=== PATIENT | male | born 1945 | race Caucasian/White ===

== ENCOUNTER → 2016-12-01 | Outpatient (REF) | payer BC ==
[~2016-12-01] MED LIST: ANDR1.624 TD; ASPI325T PO; ATOR40TA PO; BUPR300T34 PO; DRIS50002 PO; FENO134C PO; GABA-282 PO; LANS30CA PO; LEVO50TA45 PO; LOMO2.5T PO; VITA-5 PO; XANA1TAB2 PO
[2016-12-01 12:33] LABS: VITAMIN B12 LEVEL 822 PG/ML (247-911)
[2016-12-01 12:40] LABS: ALBUMIN 3.5 GM/DL (3.2-5.2); ALKALINE PHOSPHATASE 32 U/L (45-117); ALT/SGPT 17 U/L (12-78); ANION GAP 7 MEQ/L (8-16); AST/SGOT 13 U/L (15-37); BILIRUBIN,TOTAL 0.4 MG/DL (0.2-1.0); BLOOD UREA NITROGEN 11 MG/DL (7-18); CALCIUM LEVEL 8.6 MG/DL (8.8-10.2); CARBON DIOXIDE LEVEL 30 MEQ/L (21-32); CHLORIDE LEVEL 106 MEQ/L (98-107); CHOLESTEROL LEVEL 158 MG/DL (<200); CREATININE FOR GFR 1.23 MG/DL (0.70-1.30); FREE T4 0.93 NG/DL (0.76-1.46); GLOMERULAR FILTRATION RATE > 60.0 (>42); GLUCOSE, FASTING 96 MG/DL (83-110); SODIUM LEVEL 143 MEQ/L (136-145); TRIGLYCERIDES LEVEL 85 MG/DL (<150)
== END ==
LOC: M LABDRAW1 11:26
PROVIDERS: ATTEND Emergency Medicine
DX: E78.2 Mixed hyperlipidemia (principal); E55.9 Vitamin D deficiency, unspecified; D51.9 Vitamin B12 deficiency anemia, unspecified; E03.9 Hypothyroidism, unspecified

== ENCOUNTER → 2017-01-01 | Outpatient (CLI) | payer BC ==
[~2017-01-01] MED LIST changes: +ISOVUE-370 76% 100ML VIAL (Q9967) As Ordered ONE
--- NOTE | 2017-01-01 17:14 | REP ---
Clinical: Follow-up pulmonary nodule. Technique: Axial contrast enhanced images from the thoracic inlet to the upper abdomen oozing 100 ml Isovue 370 intravenous contrast material with coronal and sagittal re-formations. Comparison: 06/27/2016. Findings: The 6 mm noncalcified nodule inseparable from the right major fissure (image 52) remains stable. Smaller noncalcified nodules inseparable from the left major fissure are known to be chronic and stable compared to 2007. Trace bibasilar chronic changes and minimal lingular scarring remains stable to 2016 and similar to 2007. No new acute consolidation, significant nodule or mass lesion appreciated. Tracheobronchial tree is patent and normal. No adenopathy. Mediastinum demonstrates atherosclerotic changes to the thoracic aorta and coronary arteries without aortic aneurysm, cardiomegaly or pericardial effusion. Evidence for prior sternotomy and CABG. Limited upper abdomen demonstrates normal bilateral adrenal glands. Impression: Stable appearance to the 6 mm nodule inseparable from the right major fissure. Remainder examination demonstrates essentially stable compared to 2007. Consider 9 to 12-month follow-up examination to insure stability and chronicity. Signed by Tomás Edwards MD 01/01/2017 05:06 P
== END ==
LOC: M RAD 16:19
PROVIDERS: ATTEND Emergency Medicine
DX: R91.1 Solitary pulmonary nodule (principal)
CPT/HCPCS: 71260; Q9967

== ENCOUNTER → 2017-06-09 | Outpatient (CLI) | payer BC ==
[~2017-06-09] MED LIST changes: -ATOR40TA PO; +ATOR40TA75 PO; -ISOVUE-370 76% 100ML VIAL (Q9967) As Ordered ONE
[2017-06-09 10:18] LABS: ALBUMIN 3.8 GM/DL (3.2-5.2); ALBUMIN/GLOBULIN RATIO 1.36 (1.00-1.93); ALKALINE PHOSPHATASE 51 U/L (45-117); ALT/SGPT 21 U/L (12-78); ANION GAP 8 MEQ/L (8-16); AST/SGOT 16 U/L (7-37); BILIRUBIN,TOTAL 0.4 MG/DL (0.2-1.0); BLOOD UREA NITROGEN 18 MG/DL (7-18); CARBON DIOXIDE LEVEL 28 MEQ/L (21-32); CHLORIDE LEVEL 108 MEQ/L (98-107); CHOLESTEROL LEVEL 159 MG/DL (<200); CREATININE FOR GFR 1.15 MG/DL (0.70-1.30); FREE T4 1.09 NG/DL (0.76-1.46); GLOMERULAR FILTRATION RATE > 60.0 (>42); GLUCOSE, FASTING 96 MG/DL (83-110); POTASSIUM SERUM 4.3 MEQ/L (3.5-5.1); SODIUM LEVEL 144 MEQ/L (136-145); TOTAL PROTEIN 6.6 GM/DL (6.4-8.2); TRIGLYCERIDES LEVEL 294 MG/DL (<150)
== END ==
LOC: M LAB 08:54
PROVIDERS: ATTEND Emergency Medicine
DX: Z00.00 Encounter for general adult medical examination without abnormal findings (principal); I10 Essential (primary) hypertension; E78.2 Mixed hyperlipidemia; E03.9 Hypothyroidism, unspecified; E55.9 Vitamin D deficiency, unspecified

== ENCOUNTER → 2017-12-12 | Outpatient (REF) | payer BC ==
[2017-12-12 12:18] LABS: TOTAL 25(OH) VITAMIN D 31.3 NG/ML (30.0-100.0); VITAMIN B12 LEVEL 627 PG/ML (247-911)
[2017-12-12 12:36] LABS: ALBUMIN 3.7 GM/DL (3.2-5.2); ALBUMIN/GLOBULIN RATIO 1.28 (1.00-1.93); ALKALINE PHOSPHATASE 47 U/L (45-117); ALT/SGPT 17 U/L (12-78); ANION GAP 5 MEQ/L (8-16); AST/SGOT 17 U/L (7-37); BILIRUBIN,TOTAL 0.4 MG/DL (0.2-1.0); BLOOD UREA NITROGEN 17 MG/DL (7-18); CALCIUM LEVEL 8.6 MG/DL (8.8-10.2); CARBON DIOXIDE LEVEL 28 MEQ/L (21-32); CHLORIDE LEVEL 109 MEQ/L (98-107); CHOLESTEROL LEVEL 157 MG/DL (<200); CHOLESTEROL RISK RATIO 3.204 (<5); CREATININE FOR GFR 1.13 MG/DL (0.70-1.30); FREE T4 0.95 NG/DL (0.76-1.46); GLOMERULAR FILTRATION RATE > 60.0 (>42); GLUCOSE, FASTING 97 MG/DL (70-100); HDL CHOLESTEROL 49 MG/DL (>40); LDL CHOLESTEROL 83.4 MG/DL (<100); NON-HDL-C 108 MG/DL; POTASSIUM SERUM 4.5 MEQ/L (3.5-5.1); SODIUM LEVEL 142 MEQ/L (136-145); TOTAL PROTEIN 6.6 GM/DL (6.4-8.2); TRIGLYCERIDES LEVEL 123 MG/DL (<150)
== END ==
LOC: M LABDRAW1 10:14
DX: E78.2 Mixed hyperlipidemia (principal); E55.9 Vitamin D deficiency, unspecified; D51.9 Vitamin B12 deficiency anemia, unspecified; E03.9 Hypothyroidism, unspecified
CPT/HCPCS: 84443

== ENCOUNTER → 2017-12-31 | Outpatient (CLI) | payer BC ==
[~2017-12-31] MED LIST changes: -ANDR1.624 TD; -ASPI325T PO; -ATOR40TA75 PO; -BUPR300T34 PO; -DRIS50002 PO; -FENO134C PO; -GABA-282 PO; +ISOVUE-370 76% 100ML VIAL (Q9967) As Ordered; -LANS30CA PO; -LEVO50TA45 PO; -LOMO2.5T PO; -VITA-5 PO; -XANA1TAB2 PO
== END ==
LOC: M RAD 10:09
DX: R91.8 Other nonspecific abnormal finding of lung field (principal)
CPT/HCPCS: Q9967

== ENCOUNTER → 2018-07-02 | Outpatient (REF) | payer BC ==
[2018-07-02 15:59] LABS: BASO # 0.1 10^3/uL (0.0-0.2); BASO % 0.6 % (0.0-1.0); EOS # 0.1 10^3/uL (0.0-0.50); EOS % 1.6 % (0.0-3.0); HEMATOCRIT 39.2 % (42.0-52.0); HEMOGLOBIN 13.3 g/dl (13.5-17.5); IMMATURE GRANULOCYTE % 0.5 % (0-3.0); LYMPH # 1.4 10^3/uL (1.5-4.5); LYMPH % 17.1 % (24.0-44.0); MEAN CORPUSCULAR HEMOGLOBIN 32.5 pg (27.0-33.0); MEAN CORPUSCULAR HGB CONC 33.9 g/dl (32.0-36.5); MEAN CORPUSCULAR VOLUME 95.8 fl (80.0-96.0); MONO # 0.7 10^3/uL (0.0-0.8); MONO % 8.6 % (0.0-5.0); NEUTROPHILS # 5.9 10^3/uL (1.8-7.7); NEUTROPHILS % 71.6 % (36.0-66.0); PLATELET COUNT, AUTOMATED 269 10^3/uL (150-450); RED BLOOD COUNT 4.09 10^6/uL (4.30-6.10); RED CELL DISTRIBUTION WIDTH 12.7 % (11.5-14.5); WHITE BLOOD COUNT 8.3 10^3/uL (4.0-10.0)
[2018-07-02 16:14] LABS: ALBUMIN 3.8 GM/DL (3.2-5.2); ALBUMIN/GLOBULIN RATIO 1.41 (1.00-1.93); ALKALINE PHOSPHATASE 48 U/L (45-117); ALT/SGPT 20 U/L (12-78); ANION GAP 7 MEQ/L (8-16); AST/SGOT 15 U/L (7-37); BILIRUBIN,TOTAL 0.8 MG/DL (0.2-1.0); BLOOD UREA NITROGEN 13 MG/DL (7-18); CALCIUM LEVEL 8.8 MG/DL (8.8-10.2); CARBON DIOXIDE LEVEL 29 MEQ/L (21-32); CHLORIDE LEVEL 107 MEQ/L (98-107); CREATININE FOR GFR 1.21 MG/DL (0.70-1.30); GLOMERULAR FILTRATION RATE > 60.0 (>42); GLUCOSE, FASTING 84 MG/DL (70-100); POTASSIUM SERUM 4.1 MEQ/L (3.5-5.1); RHEUMATOID FACTOR QUANT < 10.0 IU/ML (<15.0); SODIUM LEVEL 143 MEQ/L (136-145); TOTAL 25(OH) VITAMIN D 49.1 NG/ML (30.0-100.0); TOTAL PROTEIN 6.5 GM/DL (6.4-8.2)
[2018-07-02 16:41] LABS: ERYTHROCYTE SEDIMENTATION RATE 3 mm/hr (0-20)
[2018-07-05 14:10] LABS: ANTINUCLEAR ANTIBODIES DIRECT Negative (Negative)
== END ==
LOC: M LABDRAW1 15:41
DX: R51 Headache (principal)
CPT/HCPCS: 84443

== ENCOUNTER → 2018-12-03 | Outpatient (REF) | payer BC ==
[~2018-12-03] MED LIST changes: +ANDR1.624 TD; +ASPI-1 PO; +ATOR40TA75 PO; +BUPR300T34 PO; +DRIS50003 PO; +FENO134C PO; +GABA-843 PO; -ISOVUE-370 76% 100ML VIAL (Q9967) As Ordered; +LANS30CA PO; +LEVO50TA45 PO; +LOMO2.5T PO; +VITA-5 PO; +XANA1TAB2 PO
[2018-12-03 13:59] LABS: ALBUMIN 3.3 GM/DL (3.2-5.2); ALT/SGPT 17 U/L (12-78); BILIRUBIN,TOTAL 0.3 MG/DL (0.2-1.0); BLOOD UREA NITROGEN 17 MG/DL (7-18); CALCIUM LEVEL 8.5 MG/DL (8.8-10.2); CARBON DIOXIDE LEVEL 27 MEQ/L (21-32); CHLORIDE LEVEL 110 MEQ/L (98-107); CHOLESTEROL LEVEL 139 MG/DL (<200); CHOLESTEROL RISK RATIO 3.021 (<5); GLOMERULAR FILTRATION RATE > 60.0 (>42); GLUCOSE, FASTING 106 MG/DL (70-100); HDL CHOLESTEROL 46 MG/DL (>40); LDL CHOLESTEROL 76 MG/DL (<100); NON-HDL-C 93 MG/DL; POTASSIUM SERUM 3.8 MEQ/L (3.5-5.1); SODIUM LEVEL 143 MEQ/L (136-145); TOTAL PROTEIN 5.9 GM/DL (6.4-8.2); TRIGLYCERIDES LEVEL 85 MG/DL (<150)
== END ==
LOC: M LABDRAW1 11:55
PROVIDERS: ATTEND Physician Assistant
DX: I10 Essential (primary) hypertension (principal); E03.9 Hypothyroidism, unspecified

== ENCOUNTER → 2019-05-15 | Outpatient (REF) | payer BC | LOC: M LAB REF 16:55 | PROVIDERS: ATTEND Orthopaedic Surgery Hand Surgery | DX: M72.0 Palmar fascial fibromatosis [Dupuytren] (principal) ==

== ENCOUNTER → 2019-06-04 | Outpatient (REF) | payer BC ==
[2019-06-04 16:10] LABS: BASO % 0.5 % (0.0-1.0); EOS # 0.2 10^3/uL (0.0-0.5); HEMATOCRIT 36.9 % (42.0-52.0); HEMOGLOBIN 12.3 g/dl (13.5-17.5); LYMPH # 1.3 10^3/uL (1.5-5.0); LYMPH % 17.2 % (24.0-44.0); MEAN CORPUSCULAR HEMOGLOBIN 32.6 pg (27.0-33.0); MEAN CORPUSCULAR HGB CONC 33.3 g/dl (32.0-36.5); MEAN CORPUSCULAR VOLUME 97.9 fl (80.0-96.0); MONO # 0.5 10^3/uL (0.0-0.8); MONO % 6.9 % (0.0-5.0); NEUTROPHILS # 5.3 10^3/uL (1.5-8.5); NEUTROPHILS % 72.5 % (36.0-66.0); PLATELET COUNT, AUTOMATED 449 10^3/uL (150-450); RED BLOOD COUNT 3.77 10^6/uL (4.30-6.10); WHITE BLOOD COUNT 7.4 10^3/uL (4.0-10.0)
[2019-06-04 16:13] LABS: ALBUMIN 3.1 GM/DL (3.2-5.2); ALT/SGPT 16 U/L (12-78); BILIRUBIN,TOTAL 0.4 MG/DL (0.2-1.0); BLOOD UREA NITROGEN 12 MG/DL (7-18); CALCIUM LEVEL 8.7 MG/DL (8.8-10.2); CARBON DIOXIDE LEVEL 29 MEQ/L (21-32); CHLORIDE LEVEL 110 MEQ/L (98-107); CREATININE FOR GFR 1.14 MG/DL (0.70-1.30); FREE T4 1.05 NG/DL (0.76-1.46); GLOMERULAR FILTRATION RATE > 60.0 (>42); GLUCOSE, FASTING 91 MG/DL (70-100); POTASSIUM SERUM 4.6 MEQ/L (3.5-5.1); SODIUM LEVEL 142 MEQ/L (136-145); THYROID STIMULATING HORMONE 0.519 uIU/ML (0.358-3.740); TOTAL PROTEIN 6.3 GM/DL (6.4-8.2)
== END ==
LOC: M LABDRAW1 13:15
PROVIDERS: ATTEND Physician Assistant
DX: E03.9 Hypothyroidism, unspecified (principal); D51.9 Vitamin B12 deficiency anemia, unspecified; I10 Essential (primary) hypertension

== ENCOUNTER 2019-07-28 10:41 | Day surgery (SDC) | payer BC ==
[~2019-07-28] VITALS: Ht 177.8 cm; Wt 80.7 kg
[~2019-07-28 10:41] MED LIST changes: +LIDOCAINE 2% INJ 100 MG/5 ML SDV (FOR ANES.) As Ordered ONE; +MIDAZOLAM INJ 2 MG/2 ML VIAL (J2250) As Ordered ONE; +ceFAZolin SOD 2 GM in IV 1 EA IV ONE; +fentaNYL 100 MCG/2 ML INJECTION (J3010) As Ordered ONE
[2019-07-28] MEDS ORDERED: ONDANSETRON 4MG/2ML VIAL (J2405) As Ordered ONE (10:42)
[2019-07-28] MEDS ORDERED: PROPOFOL 200 MG/20 ML VIAL As Ordered ONE ×2 (10:42→12:43)
[2019-07-28] MEDS ORDERED: OMEG10002 PO (11:38)
[2019-07-28] MEDS ORDERED: BUPIVACAINE/EPIN 0.25% 30 ML VIAL As Ordered ONE (11:55)
[2019-07-28] MEDS ORDERED: LR 1,000 ML IV ONE (12:00)
[2019-07-28] MEDS ORDERED: KETAMINE HCL 200 MG/20 ML VIAL As Ordered ONE (12:34)
[2019-07-28] MEDS ORDERED: KETOROLAC 60 MG/2 ML VIAL (J1885) As Ordered ONE (12:53)
[2019-07-28] MEDS ORDERED: oxyCODONE 5MG TAB PO PRN ×2 (13:45)
[2019-07-28 14:30] VITALS: BP 136/60
--- NOTE | 2019-07-28 17:16 | ECGEPIP ---
[facility] Test Date: 2019-07-28 Pat Name: MYLES HOLGUIN Department: Room: - Gender: Male Hospital Orderly: L[facility]EN[facility] : 1945 Requested By: Antione Cruz Order Number: [id number] Reading MD: Yoni Rodarte Measurements Intervals [place] Rate: 74 P: 62 MT: 141 QRS: 9 QRSD: 99 T: 24 QT: 392 QTc: 437 Interpretive Statements SINUS RHYTHM POSSIBLE LEFT ATRIAL ENLARGEMENT Comparison tracing not on file Electronically Signed on 07-28-2019 17:15:49 EST by Yoni Rodarte
--- NOTE | 2019-07-29 16:32 | RO ---
DATE OF PROCEDURE: 07/28/2019 PREPROCEDURE DIAGNOSIS: Right femur full thickness skin loss over the volar proximal interphalangeal (PIP). POSTPROCEDURE DIAGNOSIS: Right femur full thickness skin loss over the volar proximal interphalangeal (PIP). Flexor tendon decussation. PROCEDURE: Right ring finger amputation at the proximal interphalangeal joint. SURGEON: Gerald Huntley MD LUMBER SALVAGER: None. ANESTHESIA: Moderate sedation with local anesthesia. PREOPERATIVE ANTIBIOTICS: 2 grams of Ancef. COMPLICATIONS: None. TOURNIQUET TIME: Approximately 20 minutes. INDICATIONS: This is a 74-year-old male who underwent a revision ring finger and small finger Dupuytren's approximately 2-3 months prior. As a result, suffered a full thickness skin loss and due to the skin loss and numerous procedures that need to be done in order to restore the skin along with flexor tendon reconstruction, the patient preferred to go with a ring finger amputation at the PIP, which is completely reasonable. We discussed the risks including but not limited to infection, damage to surrounding structures, incomplete relief. The patient expressed understanding and wished to proceed. DESCRIPTION OF PROCEDURE: The patient was brought back to the operating room (OR) in supine position, underwent moderate sedation at which point a time out was taken to confirm site, side, and surgery. Once all in agreement, we injected 10 mL of 0.25% Marcaine with epinephrine in a digital block form. We then prepped and draped the hand in the usual fashion. Repeat time-out confirmed side and site of surgery. One all in agreement, we made an incision just proximal to the volar skin necrosis down through the flexor tendon to bone and disarticulated through the PIP and elevated a dorsal skin graft left in continuity with the proximal finger. Once this was done, we isolated the extensor tendon and flexor tendons and excised them proximally. We then identified both the radial and ulnar digital nerves and excised them proximally as well. Once this was done, we irrigated thoroughly. We used a rongeur to debride the articular surface of the proximal phalanx and reshaped it into more of a distal phalanx shape. At which point, we irrigated the wound thoroughly and closed with #3-0 nylon. We then placed a dressing of Adaptic gauze, Stoney and Coban. Tourniquet was let down. The patient was awakened and taken to the post-anesthesia care unit (PACU) in stable condition. POSTOP PLAN: Given the open wound, we did place the patient on one week's worth of Keflex 250 mg four times a day for 7 days, also some pain medication. Patient will work on range of motion immediately after surgery and will see him in approximately 2 weeks for suture removal if he is ready. Patient expressed understanding and agrees with that ahead of time.
== END 2019-07-28 14:40 | disposition home or self-care (01) ==
LOC: M SDC 10:41
PROVIDERS: ATTEND Orthopaedic Surgery Hand Surgery
DX: L98.8 Other specified disorders of the skin and subcutaneous tissue (principal); M79.89 Other specified soft tissue disorders; E78.49 Other hyperlipidemia; K21.9 Gastro-esophageal reflux disease without esophagitis; E03.9 Hypothyroidism, unspecified; F41.9 Anxiety disorder, unspecified; F32.9 Major depressive disorder, single episode, unspecified; Z79.82 Long term (current) use of aspirin; Z95.1 Presence of aortocoronary bypass graft; Z87.891 Personal history of nicotine dependence; Z98.61 Coronary angioplasty status
CPT/HCPCS: 26951; 88305; 93005; J0690; J1885; J2250; J2405; J3010

== ENCOUNTER → 2020-02-04 | Outpatient (CLI) | payer BC ==
[~2020-02-04] MED LIST changes: -BUPR300T34 PO; +BUPR300T92 PO; -LIDOCAINE 2% INJ 100 MG/5 ML SDV (FOR ANES.) As Ordered ONE; -MIDAZOLAM INJ 2 MG/2 ML VIAL (J2250) As Ordered ONE; +OMEG10002 PO; -ceFAZolin SOD 2 GM in IV 1 EA IV ONE; -fentaNYL 100 MCG/2 ML INJECTION (J3010) As Ordered ONE
[2020-02-04 11:54] LABS: BASO % 0.6 % (0.0-1.0); EOS # 0.2 10^3/uL (0.0-0.5); EOS % 3.6 % (0.0-3.0); HEMATOCRIT 39.7 % (42.0-52.0); HEMOGLOBIN 13.4 g/dl (13.5-17.5); LYMPH # 1.2 10^3/uL (1.5-5.0); LYMPH % 25.7 % (24.0-44.0); MEAN CORPUSCULAR HGB CONC 33.8 g/dl (32.0-36.5); MEAN CORPUSCULAR VOLUME 97.8 fl (80.0-96.0); MONO # 0.4 10^3/uL (0.0-0.8); MONO % 8.1 % (0.0-5.0); NEUTROPHILS # 2.9 10^3/uL (1.5-8.5); NEUTROPHILS % 61.4 % (36.0-66.0); PLATELET COUNT, AUTOMATED 236 10^3/uL (150-450); RED BLOOD COUNT 4.06 10^6/uL (4.30-6.10); WHITE BLOOD COUNT 4.7 10^3/uL (4.0-10.0)
[2020-02-04 12:23] LABS: ALBUMIN 3.4 GM/DL (3.2-5.2); ALT/SGPT 20 U/L (12-78); BILIRUBIN,TOTAL 0.6 MG/DL (0.2-1.0); BLOOD UREA NITROGEN 16 MG/DL (7-18); CALCIUM LEVEL 8.4 MG/DL (8.8-10.2); CARBON DIOXIDE LEVEL 28 MEQ/L (21-32); CHLORIDE LEVEL 110 MEQ/L (98-107); CHOLESTEROL LEVEL 152 MG/DL (<200); CHOLESTEROL RISK RATIO 3.166 (<5); CREATININE FOR GFR 1.16 MG/DL (0.70-1.30); GLOMERULAR FILTRATION RATE > 60.0 (>42); GLUCOSE, FASTING 92 MG/DL (70-100); HDL CHOLESTEROL 48 MG/DL (>40); LDL CHOLESTEROL 84 MG/DL (<100); NON-HDL-C 104 MG/DL; POTASSIUM SERUM 4.4 MEQ/L (3.5-5.1); SODIUM LEVEL 142 MEQ/L (136-145); THYROXINE (T4) 6.6 UG/DL (4.5-12.0); TRIGLYCERIDES LEVEL 101 MG/DL (<150)
[2020-02-04 12:24] LABS: VITAMIN B12 LEVEL 861 PG/ML (247-911)
== END ==
LOC: M LAB 10:39
PROVIDERS: ATTEND Physician Assistant
DX: E78.2 Mixed hyperlipidemia (principal); E03.9 Hypothyroidism, unspecified; E55.9 Vitamin D deficiency, unspecified; D51.9 Vitamin B12 deficiency anemia, unspecified

== ENCOUNTER → 2020-07-22 | Outpatient (CLI) | payer BC ==
[2020-07-22 15:25] LABS: ALBUMIN 3.5 GM/DL (3.2-5.2); ALT/SGPT 19 U/L (12-78); BILIRUBIN,TOTAL 0.4 MG/DL (0.2-1.0); BLOOD UREA NITROGEN 16 MG/DL (7-18); CALCIUM LEVEL 8.2 MG/DL (8.8-10.2); CARBON DIOXIDE LEVEL 30 MEQ/L (21-32); CHLORIDE LEVEL 109 MEQ/L (98-107); CHOLESTEROL LEVEL 165 MG/DL (<200); CREATININE FOR GFR 1.15 MG/DL (0.70-1.30); FREE T4 0.85 NG/DL (0.76-1.46); GLOMERULAR FILTRATION RATE > 60.0 (>42); GLUCOSE, FASTING 77 MG/DL (70-100); HDL CHOLESTEROL 60 MG/DL (>40); LDL CHOLESTEROL 87 MG/DL (<100); NON-HDL-C 105 MG/DL; POTASSIUM SERUM 4.2 MEQ/L (3.5-5.1); SODIUM LEVEL 141 MEQ/L (136-145); THYROID STIMULATING HORMONE 0.997 uIU/ML (0.358-3.740); TRIGLYCERIDES LEVEL 91 MG/DL (<150)
[2020-07-22 15:27] LABS: TOTAL 25(OH) VITAMIN D 44.1 NG/ML (30.0-100.0)
== END ==
LOC: M LAB 14:19
PROVIDERS: ATTEND Physician Assistant
DX: E78.2 Mixed hyperlipidemia (principal); E03.9 Hypothyroidism, unspecified; E55.9 Vitamin D deficiency, unspecified

== ENCOUNTER → 2020-09-09 | Outpatient (CLI) | payer BC ==
[~2020-09-09] MED LIST changes: +ECOT81TA5 PO; +EZET10TA21 PO; +GABA-282 PO; -GABA-843 PO; +IBUP-1022 PO; +TAMS1CAP17 PO
== END ==
LOC: M LABSMTC 09:47
PROVIDERS: ATTEND Anesthesiology
DX: Z01.812 Encounter for preprocedural laboratory examination (principal); Z20.822 Contact with and (suspected) exposure to COVID-19

== ENCOUNTER 2020-09-14 06:54 | Day surgery (SDC) | payer BC ==
[~2020-09-14] VITALS: Ht 177.8 cm; Wt 80.7 kg
[~2020-09-14 06:54] MED LIST changes: +NS 1,000 ML IV ONE
--- OUTSIDE RECORDS SUMMARY | 2020-09-14 06:59 | CCD | Continuity of Care Document ---
Author Author Troy VELASQUEZ PA Organization Unknown Address [address] [place] [address] Phone [phone] Care Team Providers Care Biodiesel Processing Technician Name Role Phone [facility]- [place] - Urology AUTM [phone] Murray Salcido AUTM [phone] Emy Burdick AUTM [phone] [facility] - Gastroenterology AUTM [phone] Problems Active Problems Provider Date Coronary arteriosclerosis Murray Salcido M.D. Onset: 08/04/2011 Mixed hyperlipidemia Murray Salcido M.D. Onset: 08/04 Gastroesophageal reflux disease Murray Salcido M.D. O nset: 08/04/2011 Depressive disorder Murray Salcido M.D. Onset: 2010 Tinea cruris Murray Salcido M.D. Onset: 2010 Vitamin D deficiency Murray Salcido M.D. Onset: 09/05 Hypothyroidism Murray Salcido M.D. Onset: 2012 Testicular hypofunction Murray Salcido M.D. Onset: Adjustment disorder with mixed emotional features [place] Salcido M.D. Onset: 12/11/2016 Social History Type Date Description Comments Sex Unknown Tobacco Use Start: Unknown Never Used Smokeless Tobacco ETOH Use Consumes 3-4 beers per day Tobacco Use Start: 08/13/58 End: 08/13/09 Patient is a forme r smoker smoked 2 packs per day Recreational Drug Use Denies Drug Use Smoking Status Reviewed: 07/29/20 Patient is a former smoker sm oked 2 packs per day Exercise Type/Frequency Exercises regularly Sun Exposure Use less than 15 SPF Seat Belt/Car Seat Always uses seat belt Smoke Alarms Yes Smoke Alarms Carbon Monoxide Detector: Yes Allergies, Adverse Reactions, Alerts Active Allergies Reaction Severity Comments Date NKDA 08/04/2011 seasonal 11/01/2017 Medications Active Medications SIG Qnty Indications Ordering Provide r Date Flomax 0.4mg Capsules Take one po daily for prostate 90caps N40.0 Rosina Wade M.D. 020 Vitamin D (Ergocalciferol) 1.25mg (73572 Ut) Capsules take one capsule by mouth every two weeks 6caps Rosina Wade M.D. 12/02/2019 Bupropion Hydrochloride ER (XL) 300mg Tablets ER 24HR 1 by mouth every day 90tabs F32.9 Rosina Wade M.D. 06/24/2019 Clotrimazole/Betamethasone Dipropionate 1-0.05% Cream apply to affected area twice a day as needed 45gm Rosina Wade M.D. 03/25/2018 Levothyroxine Sodium 75mcg Tablets 1 by mouth every day 90tabs E03.9 Rosina Wade M.D. 017 Ibuprofen 800mg Tablets take one tablet by mouth daily as needed 120tabs Rosina Wade M.D. 1 Vitamin B 12 100mcg Lozenges 1 tab by mouth every day 30units D51.1 Murray Salcido M.D. 06/11 Alprazolam 1mg Tablets 1 tab by mouth three times a day as needed for anxiety/panic symptoms [facility] ref#: [id number] 90tabs Rosina Wade M.D. 07/09/2012 Fenofibrate Micronized 134mg Capsu les take one capsule by mouth every day for high triglycerides 90caps E78.2 Rosina Wade M.D. 07/09/[address] take one capsule by mouth every day for heartburn/acid reflux 90caps Rosina Wade M.D. Aspirin [address] 1 by mouth every day Unknown Atorvastatin Calcium 80mg Tablets take one tablet by mouth every evening Molly Castaneda M.D Immunizations CPT Code Status Date Vaccine Lot # [id number] Given 05/23/2019 Influenza Virus Vaccine, Quadrivalent,age 3 and up,multidose vial [id number] 80608 Given 06/13/2017 Influenza Virus Vaccine, Quadrivalent,age 3 and up,multidose vial 97253 Given 07/06/2016 Zostavax 50649 Given 06/13/2016 Influenza Vaccination [id number] 46958 Given 12/14/2015 Prevnar 13 [id number] 08373 Given 06/11/2015 Influenza Vaccination/preser vative free [id number] 88321 Given 06/19/2013 Pneumococcal Vaccine [id number] 69891 Given 06/19/2013 Influenza Vaccination/preser vative free [id number] 25360 Given 07/09/2012 Influenza Vaccination/preser vative free [id number] Vital Signs Date Vital Result Comment 07/29/2020 2:28pm BP Systolic 116 mmHg BP Diastolic 47 mmHg Heart Rate 72 /min Body Temperature 96.4 F Respiratory Rate 17 /min Height 69 inches 5'9" Weight 181.12 lb O2 % BldC Oximetry 99 % Peak Expiratory Flow Rate 475 Estimated Peak Flow Rate [place] Body Weight 160 lb BMI (Body Mass Index) 26.7 kg/m2 02/05/2020 2:41pm BP Systolic 126 mmHg BP Diastolic 55 mmHg Heart Rate 69 /min Body Temperature 97.8 F Respiratory Rate 16 /min Height 69 inches 5'9" Weight 175.38 lb O2 % BldC Oximetry 99 % Peak Expiratory Flow Rate 477 Estimated Peak Flow Rate [place] Body Weight 160 lb BMI (Body Mass Index) 25.9 kg/m2 Results Test Acquired Date Facility Test Result H/L Range Note Comprehensive Metabolic Profil 07/22/2020 [facility] [phone] Glucose, Fasting 77 mg/dL Normal 70-100 Blood Urea Nitrogen 16 mg/dL Normal 7-18 Creatinine For GFR 1.15 mg/dL Normal 0.70-1.30 Glomerular Filtration Rate > 60.0 Normal >42 1 Sodium Level 141 mEq/L Normal 136-145 Potassium Serum 4.2 mEq/L Normal 3.5-5.1 Chloride Level 109 mEq/L High 98-107 Carbon Dioxide Level 30 mEq/L Normal 21-32 Anion Gap 2 mEq/L Low 8-16 Calcium Level 8.2 mg/dL Low 8.8-10.2 Ast/Sgot 15 U/L Normal 7-37 Alt/SGPT 19 U/L Normal 12-78 Alkaline Phosphatase 43 U/L Low 45-117 Bilirubin,Total 0.4 mg/dL Normal 0.2-1.0 Total Protein 6.0 GM/DL Low 6.4-8.2 Albumin 3.5 GM/DL Normal 3.2-5.2 Albumin/Globulin Ratio 1.4 Normal Lipid Panel 07/22/2020 [facility] nter [phone] Triglycerides Level 91 mg/dL Normal <150 Cholesterol Level 165 mg/dL Normal <200 HDL Cholesterol 60 mg/dL Normal >40 LDL Cholesterol 87 mg/dL Normal <100 Non-HDL-C 105 mg/dL Normal Cholesterol Risk Ratio 2.750 Normal <5 Laboratory test finding 07/22/2020 [facility] [phone] Thyroid Stimulating Hormone 0.997 uIU/ML Normal 0. 358-3.740 Free T4 0.85 ng/dL Normal 0.76-1.46 Total 25(Oh) Vitamin D 44.1 NG/ML Normal 30.0-100.0 Comprehensive Metabolic Profil 02/04/2020 [facility] [phone] Glucose, Fasting 92 mg/dL Normal 70-100 Blood Urea Nitrogen 16 mg/dL Normal 7-18 Creatinine For GFR 1.16 mg/dL Normal 0.70-1.30 Glomerular Filtration Rate > 60.0 Normal >42 2 Sodium Level 142 mEq/L Normal 136-145 Potassium Serum 4.4 mEq/L Normal 3.5-5.1 Chloride Level 110 mEq/L High 98-107 Carbon Dioxide Level 28 mEq/L Normal 21-32 Anion Gap 4 mEq/L Low 8-16 Calcium Level 8.4 mg/dL Low 8.8-10.2 Ast/Sgot 15 U/L Normal 7-37 Alt/SGPT 20 U/L Normal 12-78 Alkaline Phosphatase 40 U/L Low 45-117 Bilirubin,Total 0.6 mg/dL Normal 0.2-1.0 Total Protein 6.0 GM/DL Low 6.4-8.2 Albumin 3.4 GM/DL Normal 3.2-5.2 Albumin/Globulin Ratio 1.3 Normal Lipid Panel 02/04/2020 [facility] nter [phone] Triglycerides Level 101 mg/dL Normal <150 Cholesterol Level 152 mg/dL Normal <200 HDL Cholesterol 48 mg/dL Normal >40 LDL Cholesterol 84 mg/dL Normal <100 Non-HDL-C 104 mg/dL Normal Cholesterol Risk Ratio 3.166 Normal <5 Laboratory test finding 02/04/2020 [facility] [phone] Thyroid Stimulating Hormone 1.100 uIU/ML Normal 0. 358-3.740 Thyroxine (T4) 6.6 g/dL Normal 4.5-12.0 CBC With Differential 02/04/2020 [facility] [phone] White Blood Count 4.7 10 Normal 4.0-10.0 Red Blood Count 4.06 10 Low 4.30-6.10 Hemoglobin 13.4 g/dL Low 13.5-17.5 Hematocrit 39.7 % Low 42.0-52.0 Mean Corpuscular Volume 97.8 fl High 80.0-96.0 Mean Corpuscular Hemoglobin 33.0 pg Normal 27.0-33.0 Mean Corpuscular HGB Conc 33.8 g/dL Normal 32.0-36.5 Red Cell Distribution Width 12.8 % Normal 11.5-14.5 Platelet Count, Automated 236 10 Normal 150-450 Neutrophils % 61.4 % Normal 36.0-66.0 Lymph % 25.7 % Normal 24.0-44.0 [place] % 8.1 % High 0.0-5.0 Eos % 3.6 % High 0.0-3.0 Baso % 0.6 % Normal 0.0-1.0 Immature Granulocyte % 0.6 % Normal 0-3.0 Nucleated Red Blood Cell % 0.0 % Normal 0-0 Neutrophils # 2.9 10 Normal 1.5-8.5 Lymph # 1.2 10 Low 1.5-5.0 [place] # 0.4 10 Normal 0.0-0.8 Eos # 0.2 10 Normal 0.0-0.5 Baso # 0.0 10 Normal 0.0-0.2 Laboratory test finding 02/04/2020 [facility] [phone] Vitamin B12 Level 861 pg/mL Normal 247-911 3 Vitamin D 1,25 Dihydroxy 60.6 pg/mL Normal 19.9-79.3 4 1 Units are mL/min/1.73 m2 Chronic Kidney Disease Staging per NKF: Stage I & II GFR >=60 Normal to Mildly Decreased Stage III GFR 30-59 Moderately Decreased Stage IV GFR 15-29 Severely Decreased Stage V GFR <15 Very Little GFR Left ESRD GFR <15 on BUTTERMAKER HELPER 2 Units are mL/min/1.73 m2 Chronic Kidney Disease Staging per NKF: Stage I & II GFR >=60 Normal to Mildly Decreased Stage III GFR 30-59 Moderately Decreased Stage IV GFR 15-29 Severely Decreased Stage V GFR <15 Very Little GFR Left ESRD GFR <15 on BUTTERMAKER HELPER 3 VITAMIN B12 NORMAL RANGE NORMAL 247 - 911 PG/ML INDETERMINATE 211 - 246 PG/ML DEFICIENT LESS THAN 211 PG/ML 4 Performed at: [address] [id number] Lithographic Etcher: Tonya Alexis MD, Phone: [phone] Procedures Date Code Description Status 07/29/2015 95531447 Colonoscopy Completed Medical Devices Description No Information Available Encounters Type Date Location Provider Dx Diagnosis Office Visit 07/29/2020 2:15p Main Office Fabby Velasquez PA E78.2 Mixed hyperlipidemia E03.9 Hypothyroidism, unspecified F43.23 Adjustment disorder with mix ed anxiety and depressed mood K21.9 Gastro-esophageal reflux dis ease without esophagitis N40.0 Benign prostatic hyperplasia without lower urinry tract symp Office Visit 02/05/2020 2:40p Main Office Eve Singleton PA-C Z00.0 0 Encntr for general adult medical exam w/o abnormal findings F43.23 Adjustment disorder with mix ed anxiety and depressed mood K21.9 Gastro-esophageal reflux dis ease without esophagitis E78.2 Mixed hyperlipidemia E03.9 Hypothyroidism, unspecified D51.9 Vitamin B12 deficiency anemi a, unspecified E55.9 Vitamin D deficiency, unspec ified R07.9 Chest pain, unspecified Assessments Date Code Description Provider 07/29/2020 E78.2 Mixed hyperlipidemia Fabby Velasquez PA 07/29/2020 E03.9 Hypothyroidism, unspecified Fabby Love PA 07/29/2020 F43.23 Adjustment disorder with mixed a nxiety and depressed mood Fabby Velasquez PA 07/29/2020 K21.9 Gastro-esophageal reflux disease without esophagitis Fabby Velasquez PA 07/29/2020 N40.0 Benign prostatic hyp erplasia without lower urinary tract symptoms Fabby Velasquez PA 02/05/2020 Z00.00 Encounter for general adult medi onel examination without abno Eve Singleton PA-C 02/05/2020 F43.23 Adjustment disorder with mixed a nxiety and depressed mood Eve Singleton PA-C 02/05/2020 K21.9 Gastro-esophageal reflux disease without esophagitis Eve Singleton PA-C 02/05/2020 E78.2 Mixed hyperlipidemia Jimena Singleton PA-C 02/05/2020 E03.9 Hypothyroidism, unspecified Eve Hughes do, PA-C 02/05/2020 D51.9 Vitamin B12 deficiency anemia, u nspecified Eve Singleton PA-C 02/05/2020 E55.9 Vitamin D deficiency, unspecifie d Eve Singleton PA-C 02/05/2020 R07.9 Chest pain, unspecified Eve Singleton PA-C Plan of Treatment Future Appointment(s):* 02/02/2021 1:15 pm - Fabby Velasquez PA at Main Office 07/29/2020 - Fabby Velasquez PA* E78.2 Mixed hyperlipidemia* Comments: * LDL at goal with lipitorcontinue heart healthy diet * Follow up:* 6 months * E03.9 Hypothyroidism, unspecified* Comments:* labs reviewedcontinue levothyroxine 75mcg * F43.23 Adjustment disorder with mixed anxiety and depressed mood* Comments:* stable mood, continue wellbutrin * K21.9 Gastro-esophageal reflux disease without esophagitis* Comments:* well controlled with lansoprazole * N40.0 Benign prostatic hyperplasia without lower urinary tract symptoms* New Medication:* Flomax 0.4 mg - Take one po daily for prostate * New Labs:* PSA Free + Total, Scheduled: 07/29/20 * Urinalysis, Scheduled: 07/29/20 * Comments:* start Flomax Functional Status Functional Condition Comment Date Status Independent with all ADL's Activ e Glasses Active Independent with all IADL's Acti ve Complete lower and upper and lower dentures Active Mental Status Mental Condition Comment Date Status None Active Referrals Refer to Reason for Referral Status Appt Date [facility] pt is due for 5 year screening colonoscopy [address] [place] [address] [phone]
--- OUTSIDE RECORDS SUMMARY | 2020-09-14 07:00 | CCD | Continuity of Care Document ---
Author Author Troy VELASQUEZ PA Organization Unknown Address [address] [place] [address] Phone [phone] Care Team Providers Care Mainframe Applications Developer Name Role Phone [facility]- [place] - Urology AUTM Murray Salcido AUTM [phone] Emy Burdick AUTM [phone] [facility] - Gastroenterology AUTM Problems Active Problems Provider Date Coronary arteriosclerosis [...] Wade M.D. 020 Vitamin D (Ergocalciferol) 1.25mg (11294 Ut) Capsules take one capsule by mouth [...] a day as needed for anxiety/panic symptoms [facility] ref#: [id number] 90tabs Rosina Wade M.D. 07/09/2012 Fenofibrate Micronized [...] CPT Code Status Date Vaccine Lot # 11477 Given 05/23/2019 Influenza Virus Vaccine, Quadrivalent,age 3 and up,multidose vial [id number] 97421 Given 06/13/2017 Influenza Virus Vaccine, Quadrivalent,age 3 and up,multidose vial 22922 Given 07/06/2016 Zostavax 56745 Given 06/13/2016 Influenza Vaccination [id number] 03181 Given 12/14/2015 Prevnar 13 [id number] 31862 Given 06/11/2015 Influenza Vaccination/preser vative free [id number] 39419 Given 06/19/2013 Pneumococcal Vaccine [id number] 22162 Given 06/19/2013 Influenza Vaccination/preser vative free [id number] 60336 Given 07/09/2012 Influenza Vaccination/preser vative free [id number] Vital Signs Date Vital Result Comment 07/29/2020 2:28pm BP Systolic 116 mmHg BP Diastolic 47 mmHg Heart Rate 72 /min Body Temperature 96.4 F Respiratory Rate 17 /min Height 69 inches 5'9" Weight 181.12 lb O2 % BldC Oximetry 99 % Peak Expiratory Flow Rate 475 Estimated Peak Flow Rate [place] Body Weight 160 lb BMI (Body Mass Index) 26.7 kg/m2 02/05/2020 2:41pm BP Systolic 126 mmHg BP Diastolic 55 mmHg Heart Rate 69 /min Body Temperature 97.8 F Respiratory Rate 16 /min Height 69 inches 5'9" Weight 175.38 lb O2 % BldC Oximetry 99 % Peak Expiratory Flow Rate 477 Estimated Peak Flow Rate [place] Body Weight 160 lb BMI (Body Mass Index) 25.9 kg/m2 Results Test Acquired Date Facility Test Result H/L Range Note Comprehensive Metabolic Profil 07/22/2020 [facility] [phone] Glucose, Fasting 77 mg/dL Normal 70-100 Blood [...] Albumin/Globulin Ratio 1.4 Normal Lipid Panel 07/22/2020 [facility] [phone] Triglycerides Level 91 mg/dL Normal <150 Cholesterol Level 165 mg/dL Normal <200 HDL Cholesterol 60 mg/dL Normal >40 LDL Cholesterol 87 mg/dL Normal <100 Non-HDL-C 105 mg/dL Normal Cholesterol Risk Ratio 2.750 Normal <5 Laboratory test finding 07/22/2020 [facility] [phone] Thyroid Stimulating Hormone 0.997 uIU/ML Normal 0. 358-3.740 Free T4 0.85 ng/dL Normal 0.76-1.46 Total 25(Oh) Vitamin D 44.1 NG/ML Normal 30.0-100.0 Comprehensive Metabolic Profil 02/04/2020 [facility] [phone] Glucose, Fasting 92 mg/dL Normal 70-100 Blood [...] Albumin/Globulin Ratio 1.3 Normal Lipid Panel 02/04/2020 [facility] [phone] Triglycerides Level 101 mg/dL Normal <150 Cholesterol Level 152 mg/dL Normal <200 HDL Cholesterol 48 mg/dL Normal >40 LDL Cholesterol 84 mg/dL Normal <100 Non-HDL-C 104 mg/dL Normal Cholesterol Risk Ratio 3.166 Normal <5 Laboratory test finding 02/04/2020 [facility] [phone] Thyroid Stimulating Hormone 1.100 uIU/ML Normal 0. 358-3.740 Thyroxine (T4) 6.6 g/dL Normal 4.5-12.0 CBC With Differential 02/04/2020 [facility] [phone] White Blood Count 4.7 10 Normal 4.0-10.0 [...] 36.0-66.0 Lymph % 25.7 % Normal 24.0-44.0 [place] % 8.1 % High 0.0-5.0 Eos % 3.6 % High 0.0-3.0 Baso % 0.6 % Normal 0.0-1.0 Immature Granulocyte % 0.6 % Normal 0-3.0 Nucleated Red Blood Cell % 0.0 % Normal 0-0 Neutrophils # 2.9 10 Normal 1.5-8.5 Lymph # 1.2 10 Low 1.5-5.0 [place] # 0.4 10 Normal 0.0-0.8 Eos # 0.2 10 Normal 0.0-0.5 Baso # 0.0 10 Normal 0.0-0.2 Laboratory test finding 02/04/2020 [facility] [phone] Vitamin B12 Level 861 pg/mL Normal 247-911 3 Vitamin D 1,25 Dihydroxy 60.6 pg/mL Normal 19.9-79.3 4 1 Units are mL/min/1.73 m2 Chronic Kidney Disease Staging per NKF: Stage I & II GFR >=60 Normal to Mildly Decreased Stage III GFR 30-59 Moderately Decreased Stage IV GFR 15-29 Severely Decreased Stage V GFR <15 Very Little GFR Left ESRD GFR <15 on BLISTER PACKING MACHINE TENDER 2 Units are mL/min/1.73 m2 Chronic Kidney Disease Staging per NKF: Stage I & II GFR >=60 Normal to Mildly Decreased Stage III GFR 30-59 Moderately Decreased Stage IV GFR 15-29 Severely Decreased Stage V GFR <15 Very Little GFR Left ESRD GFR <15 on BLISTER PACKING MACHINE TENDER 3 VITAMIN B12 NORMAL RANGE NORMAL 247 - 911 PG/ML INDETERMINATE 211 - 246 PG/ML DEFICIENT LESS THAN 211 PG/ML 4 Performed at: [address] [id number] Finance Broker: Tonya Alexis MD, Phone: [phone] Procedures Date Code Description Status 07/29/2015 [id number] Colonoscopy Completed Medical Devices Description No Information Available Encounters Type Date Location Provider Dx Diagnosis Office Visit 02/05/2020 2:40p Main Office Eve [...] Fabby Velasquez PA 07/29/2020 E03.9 Hypothyroidism, unspecified Cornelius Fabby tang PA 07/29/2020 F43.23 Adjustment disorder with mixed [...] Jimena Singleton PA-C 02/05/2020 E03.9 Hypothyroidism, unspecified Rameshor Eve ambriz PA-C 02/05/2020 D51.9 Vitamin B12 deficiency anemia, u nspecified Eve Singleton PA-C 02/05/2020 E55.9 Vitamin D deficiency, unspecifie d Eve Singleton PA-C 02/05/2020 R07.9 Chest pain, unspecified Eve Singleton PA-C Plan of Treatment 07/29/2020 - Fabby Velasquez PA* E78.2 Mixed hyperlipidemia* Follow up:* 6 months * E03.9 Hypothyroidism, unspecified * F43.23 Adjustment disorder with mixed anxiety and depressed mood * K21.9 Gastro-esophageal reflux disease without esophagitis * N40.0 Benign prostatic hyperplasia without lower urinary tract symptoms* New Medication:* Flomax 0.4 mg - Take one po daily for prostate * New Labs:* PSA Free + Total, Scheduled: 07/29/20 * Urinalysis, Scheduled: 07/29/20 Functional Status Functional Condition Comment Date Status Independent with all ADL's Activ e Glasses Active Independent with all IADL's Acti ve Complete lower and upper and lower dentures Active Mental Status Mental Condition Comment Date Status None Active Referrals Refer to Reason for Referral Status Appt Date [facility] pt is due for 5 year screening colonoscopy [address] [place] [address] [phone]
--- OUTSIDE RECORDS SUMMARY | 2020-09-14 07:00 | CCD | Continuity of Care Document ---
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 Name Role Phone Eve Singleton P.A.-C AUTM [phone] AUTM Unavailable Problems Active Problems Provider Date Screening for malignant neoplasm of colon Yoni Vera MD Onset: 01/01/2019 History of polyp of colon Yoni Vera MD Onset: 019 Benign neoplasm of colon Yoni Vera MD Onset: 01/02/20 19 Benign neoplasm of ascending colon Yoni Vera MD Onset : 01/01/2019 Family history of malignant neoplasm of gastrointestin al tract JERRY Zambrano Onset: 01/01/2019 Gastroesophageal reflux disease JERRY Zambrano Onset: 01/01/2019 Social History Type Date Description Comments Sex Unknown ETOH Use 3 A Day Tobacco Use Start: Unknown Non Smoker Allergies, Adverse Reactions, Alerts Description No Known Drug Allergies Medications Active Medications SIG Qnty Indications Ordering Provide r Date Suprep Bowel Prep Kit 17.5-3.13-1.6GM/177ML Solution take per doctor's bowel prep instructions. 354ml Z12.1 1 Yoni Vera MD 07/13/2020 Milk Of Magnesia 1200mg/15ML Suspe nsion take 45 milliliters by mouth as directed on colonoscopy prep sheet. Z12.11 Yoni Vera MD 07/13/2020 Bupropion HCL ER (XL) 300mg Tablets ER 24HR Unknown Levothyroxine Sodium 50mcg Capsule s 1 by mouth every day Unknown Xanax 1mg Tablets bid as need ed Unknown Fenofibrate Micronized 134mg Capsules Unknown Aspirin 81mg Tablets DR daily Unknown Lansoprazole 30mg Capsules DR daily. Unknown Atorvastatin Calcium 80mg Tablets daily Unknown Vitamin D (Ergocalciferol) 1.25mg (89696 Ut) Capsules 1 every other week Unknown 0 Vitamin B12 1000mcg Tablets ER 1 by mouth every day Unknown Ibuprofen 800mg Tablets 1 by mouth every 8 hours as needed Unknown Immunizations Description No Information Available Vital Signs Date Vital Result Comment 07/13/2020 8:38am BP Systolic 132 mmHg BP Diastolic 70 mmHg Height 70 inches 5'10" Weight 177.00 lb BMI (Body Mass Index) 25.4 kg/m2 [place] Body Weight 166 lb Weight 80.287 kg BSA (Body Surface Area) 1.98 m2 01/01/2019 11:05am Height 70 inches 5'10" Weight 185.00 lb BMI (Body Mass Index) 26.5 kg/m2 [place] Body Weight 166 lb Weight 83.916 kg BSA (Body Surface Area) 2.02 m2 Results Description No Information Available Procedures Description No Information Available Medical Devices Description No Information Available Encounters Description No Information Available Assessments Date Code Description Provider 07/13/2020 Z12.11 Encounter for screening for dora gnant neoplasm of colon JERRY Zambrano 07/13/2020 Z86.010 Personal history of colonic poly ps JERRY Zambrano 07/13/2020 K21.9 Gastro-esophageal reflux disease without esophagitis JERRY Zambrano Plan of Treatment 07/13/2020 - JERRY Zambrano* Z12.11 Encounter for screening for malignant neoplasm of colon * Z86.010 Personal history of colonic polyps * K21.9 Gastro-esophageal reflux disease without esophagitis * * New Medication:* Suprep Bowel Prep Kit 17.5-3.13-1.6 GM/177ML * Milk Of Magnesia 1200 mg/15ML * New Orders:* Colonoscopy, Ordered: 07/13/20 * Comments:* Will arrange for colonoscopy. Reviewed risks and benefits of the procedure, as well as other options, with the patient. Bowel prep procedure was discussed with patient, as well as risks and side effects associated with the bowel prep. Patient verbalized understanding of all of the above and is in agreement to proceed. Patient will seek medical attention for any acute changes. Will monitor. * Follow up:* As scheduled, sooner if needed. Functional Status Description No Information Available Mental Status Description No Information Available Referrals Refer to Reason for Referral Status Appt Date Yoni Vera MD due for 5 year screening colonoscopy Created [facility], Gastroenterology [address] [place] [address], [place] [address] [phone]
--- OUTSIDE RECORDS SUMMARY | 2020-09-14 07:00 | CCD ---
Author Author [facility] Organization [facility] Address Unknown Phone Unavailable Care Team Providers Care Train Director Name Role Phone [place]ford Mota, Jah Vallejo MD, FACS Unavailable Unavailable Christina Mota, Jah Vallejo MD, FACS Unavailable Unavailable Christina Mota, Jah Vallejo MD, FACS Unavailable Unavailable Christina Mota, Jah Vallejo MD, FACS Unavailable Unavailable Christina Mota, Jah Vallejo MD, FACS Unavailable Unavailable Christina Mota, Jah Vallejo MD, FACS Unavailable Unavailable Christina Mota, Jah Vallejo MD, FACS Unavailable Unavailable Christina Mota, Jah Vallejo MD, FACS Unavailable Unavailable Christina Mota, Jah Vallejo MD, FACS Unavailable Unavailable Christina Mota, Jah Vallejo MD, FACS Unavailable Unavailable Christina Mota, Jah Vallejo MD, FACS Unavailable Unavailable Christina Mota, Jah Vallejo MD, FACS Unavailable Unavailable Christina Mota, Jah Vallejo MD, FACS Unavailable Unavailable Christina Mota, Jah Vallejo MD, FACS Unavailable Unavailable Christina Mota, Jah Vallejo MD, FACS Unavailable Unavailable Christina Mota, Jah Vallejo MD, FACS Unavailable Unavailable Christina Mota, Jah Vallejo MD, FACS Unavailable Unavailable Christina Mota, Jah Vallejo MD, FACS Unavailable Unavailable Christina Mota, Jah Vallejo MD, FACS Unavailable Unavailable Christina Mota, Jah Vallejo MD, FACS Unavailable Unavailable Christina Mota, Jah Vallejo MD, FACS Unavailable Unavailable Christina Mota, Jah Vallejo MD, FACS Unavailable Unavailable Christina Mota, Jah Vallejo MD, FACS Unavailable Unavailable Christina Mota, Jah Vallejo MD, FACS Unavailable Unavailable Christina Mota, Jah Vallejo MD, FACS Unavailable Unavailable Christina Mota, Jah Vallejo MD, FACS Unavailable Unavailable Christina Mota, Jah Vallejo MD, FACS Unavailable Unavailable Sanford Mota, Jah Vallejo MD, FACS Unavailable Unavailable Sanford Mota, Jah Vallejo MD, FACS Unavailable Unavailable Sanford Mota, Jah Vallejo MD, FACS Unavailable Unavailable Sanford Mota, Jah Vallejo MD, FACS Unavailable Unavailable Sanford Mota, Jah Vallejo MD, FACS Unavailable Unavailable Sanford Mota, Jah Vallejo MD, FACS Unavailable Unavailable Sanford Mota, Jah Vallejo MD, FACS Unavailable Unavailable SleMolly durán MD Unavailable Unavailable SleMolly durán MD Unavailable Unavailable SleiqrakaEltech Unavailable Unavailable SleMolly durán MD Unavailable Unavailable SleMolly durán MD Unavailable Unavailable SleEl durántech Unavailable Unavailable SleiqrakaEltech Unavailable Unavailable SleoMlly durán MD Unavailable Unavailable El Castanedatech Unavailable Unavailable Molly Castaneda MD Unavailable Unavailable SleMolly durán MD Unavailable Unavailable Molly Castaneda MD Unavailable Unavailable Molly Castaneda MD Unavailable Unavailable SleMolly durán MD Unavailable Unavailable Molly Castaneda MD Unavailable Unavailable Molly Castaneda MD Unavailable Unavailable Molly Castaneda MD Unavailable Unavailable Molly Castaneda MD Unavailable Unavailable El Castanedatech Unavailable Unavailable Molly Castaneda MD Unavailable Unavailable Molly Castaneda MD Unavailable Unavailable Molly Castaneda MD Unavailable Unavailable Molly Castaneda MD Unavailable Unavailable SleMolly durán MD Unavailable Unavailable SleMolly durán MD Unavailable Unavailable Molly Castaneda MD Unavailable Unavailable Molly Castaneda MD Unavailable Unavailable SleMolly durán MD Unavailable Unavailable Molly Castaneda MD Unavailable Unavailable SleEl durántech Unavailable Unavailable SleEl durántech Unavailable Unavailable SleBilly duránjtech Unavailable Unavailable El Castanedatech Unavailable Unavailable El Castanedatech Unavailable Unavailable SleMolly durán MD Unavailable Unavailable SleMolly durán MD Unavailable Unavailable SleBilly duránjtech Unavailable Unavailable SleBilly duránjtech Unavailable Unavailable SleBilly duránjtech Unavailable Unavailable SleMolly durán MD Unavailable Unavailable SleBilly duránjlisa CAMACHO Unavailable Unavailable SleMolly durán MD Unavailable Unavailable Slezka, Vojtech MD Unavailable Unavailable Molly Castaneda MD Unavailable Unavailable Molly Castaneda MD Unavailable Unavailable Molly Castaneda MD Unavailable Unavailable Molly Castaneda MD Unavailable Unavailable Molly Castaneda MD Unavailable Unavailable Molly Castaneda MD Unavailable Unavailable Molly Castaneda MD Unavailable Unavailable Molly Castaneda MD Unavailable Unavailable Molly Castaneda MD Unavailable Unavailable Molly Castaneda MD Unavailable Unavailable Molly Castaneda MD Unavailable Unavailable Molly Castaneda MD Unavailable Unavailable Molly Castaneda MD Unavailable Unavailable Molly Castaneda MD Unavailable Unavailable Molly Castaneda MD Unavailable Unavailable Scordo, M Eve PA Unavailable Unavailable Scordo, M Eve PA Unavailable Unavailable Scordo, M Eve PA Unavailable Unavailable Scordo, M Eve PA Unavailable Unavailable Scordo, M Eve PA Unavailable Unavailable Scordo, M Eve PA Unavailable Unavailable Scordo, M Eve PA Unavailable Unavailable Scordo, M Eve PA Unavailable Unavailable Scordo, M Eve PA Unavailable Unavailable Scordo, M Eve PA Unavailable Unavailable Scordo, M Eve PA Unavailable Unavailable Scordo, M Eve PA Unavailable Unavailable Scordo, M Eve PA Unavailable Unavailable Scordo, M Eve PA Unavailable Unavailable Scordo, M Eve PA Unavailable Unavailable Scordo, M Eve PA Unavailable Unavailable Scordo, M Eve PA Unavailable Unavailable Scordo, M Eve PA Unavailable Unavailable Scordo, M Eve PA Unavailable Unavailable Scordo, M Eve PA Unavailable Unavailable Scordo, M Eve PA Unavailable Unavailable Scordo, M Eve PA Unavailable Unavailable Scordo, M Eve PA Unavailable Unavailable Scordo, M Eve PA Unavailable Unavailable Scordo, M Eve PA Unavailable Unavailable Scordo, M Eve PA Unavailable Unavailable Scordo, M Eve PA Unavailable Unavailable Scordo, M Eve PA Unavailable Unavailable Scordo, M Eve PA Unavailable Unavailable Scordo, M Eve PA Unavailable Unavailable Scordo, M Eve PA Unavailable Unavailable Scordo, M Eve PA Unavailable Unavailable Scordo, M Eve PA Unavailable Unavailable Scordo, M Eve PA Unavailable Unavailable Scordo, M Eve PA Unavailable Unavailable Scordo, M Eve PA Unavailable Unavailable Scordo, M Eve PA Unavailable Unavailable Scordo, M Eve PA Unavailable Unavailable Scordo, M Eve PA Unavailable Unavailable Scordo, M Eve PA Unavailable Unavailable Scordo, M Eve PA Unavailable Unavailable Scordo, M Eve PA Unavailable Unavailable Heittommie, Yoni Duarte MD Unavailable Unavailable Heitner, Yoni Duarte MD Unavailable Unavailable Heitner, Yoni Duarte MD Unavailable Unavailable Heitner, Yoni Duarte MD Unavailable Unavailable Heitner, Yoni Duarte MD Unavailable Unavailable Heitner, Yoni Duarte MD Unavailable Unavailable Heitner, Yoni Duarte MD Unavailable Unavailable Heitner, Yoni Duarte MD Unavailable Unavailable Heitner, Yoni Duarte MD Unavailable Unavailable Heitner, Yoni Duarte MD Unavailable Unavailable Heitner, Yoni Duarte MD Unavailable Unavailable Heitner, Yoni Duarte MD Unavailable Unavailable Heitner, Yoni Duarte MD Unavailable Unavailable Heitner, Yoni Duarte MD Unavailable Unavailable Heitner, Yoni Duarte MD Unavailable Unavailable Heitner, Yoni Duarte MD Unavailable Unavailable Heitner, Yoni Duarte MD Unavailable Unavailable Heitner, Yoni Duarte MD Unavailable Unavailable Heitner, Yoni Duarte MD Unavailable Unavailable Heitner, Yoni Duarte MD Unavailable Unavailable Heitner, Yoni Duarte MD Unavailable Unavailable Heitner, Yoni Duarte MD Unavailable Unavailable Heitner, Yoni Duarte MD Unavailable Unavailable Heitner, Yoni Duarte MD Unavailable Unavailable Heitner, Yoni Duarte MD Unavailable Unavailable Pleskach, Valerie ABATTOIR MANAGER Unavailable Unavailable Pleskach, Valerie ABATTOIR MANAGER Unavailable Unavailable Pleskach, Valerie ABATTOIR MANAGER Unavailable Unavailable Pleskach, Valerie ABATTOIR MANAGER Unavailable Unavailable Pleskach, Valerie ABATTOIR MANAGER Unavailable Unavailable Pleskach, Valerie ABATTOIR MANAGER Unavailable Unavailable Pleskach, Valerie ABATTOIR MANAGER Unavailable Unavailable Pleskach, Valerie ABATTOIR MANAGER Unavailable Unavailable Pleskach, Valerie ABATTOIR MANAGER Unavailable Unavailable Pleskach, Valerie ABATTOIR MANAGER Unavailable Unavailable Pleskach, Valerie ABATTOIR MANAGER Unavailable Unavailable Pleskach, Valerie ABATTOIR MANAGER Unavailable Unavailable Pleskach, Valerie ABATTOIR MANAGER Unavailable Unavailable Pleskach, Valerie ABATTOIR MANAGER Unavailable Unavailable Pleskach, Valerie ABATTOIR MANAGER Unavailable Unavailable Pleskach, Valerie ABATTOIR MANAGER Unavailable Unavailable Pleskach, Valerie ABATTOIR MANAGER Unavailable Unavailable Pleskach, Valerie ABATTOIR MANAGER Unavailable Unavailable Pleskach, Valerie ABATTOIR MANAGER Unavailable Unavailable Pleskach, Valerie ABATTOIR MANAGER Unavailable Unavailable Pleskach, Valerie ABATTOIR MANAGER Unavailable Unavailable Pleskach, Valerie ABATTOIR MANAGER Unavailable Unavailable Pleskach, Valerie ABATTOIR MANAGER Unavailable Unavailable Pleskach, Valerie ABATTOIR MANAGER Unavailable Unavailable Pleskach, Valerie ABATTOIR MANAGER Unavailable Unavailable Pleskach, Valerie ABATTOIR MANAGER Unavailable Unavailable Pleskach, Valerie ABATTOIR MANAGER Unavailable Unavailable Pleskach, Valerie ABATTOIR MANAGER Unavailable Unavailable Pleskach, Valeire ABATTOIR MANAGER Unavailable Unavailable Petrancosta, Austin Fabby PA-C Unavailable Unavailabl e Petrancosta, Austin Fabby PA-C Unavailable Unavailabl e Petrancosta, Austin Fabby PA-C Unavailable Unavailabl e Petrancosta, Austin Fabby PA-C Unavailable Unavailabl e Petrancosta, Austin Fabby PA-C Unavailable Unavailabl e Petrancosta, Austin Fabby PA-C Unavailable Unavailabl e Petrancosta, Austin Fabby PA-C Unavailable Unavailabl e Petrancosta, Austin Fabby PA-C Unavailable Unavailabl e Petrancosta, Austin Fabby PA-C Unavailable Unavailabl e Petrancosta, Austin Fabby PA-C Unavailable Unavailabl e Petrancosta, Austin Fabby PA-C Unavailable Unavailabl e Petrancosta, Austin Fabby PA-C Unavailable Unavailabl e Petrancosta, Austin Afbby PA-C Unavailable Unavailabl e Petrancosta, Austin Fabby PA-C Unavailable Unavailabl e Petrancosta, Austin Fabby PA-C Unavailable Unavailabl e Petrancosta, Austin Fabby PA-C Unavailable Unavailabl e Petrancosta, Austin Fabby PA-C Unavailable Unavailabl e Petrancosta, Austin Fabby PA-C Unavailable Unavailabl e Petrancosta, Austin Fabby PA-C Unavailable Unavailabl e Petrancosta, Austin Fabby PA-C Unavailable Unavailabl e Petrancosta, Austin Fabby PA-C Unavailable Unavailabl e Petrancosta, Austin Fabby PA-C Unavailable Unavailabl e Petrancosta, Austin Fabby PA-C Unavailable Unavailabl e SHELBY, Toribio HOFF MD Unavailable Unavailable SHELBY, Toribio HOFF MD Unavailable Unavailable SHELBY, Toribio HOFF MD Unavailable Unavailable SHELBY, Toribio HOFF MD Unavailable Unavailable SHELBY, Toribio HOFF MD Unavailable Unavailable SHELBY, Toribio HOFF MD Unavailable Unavailable SHELBY, Toribio HOFF MD Unavailable Unavailable SHELBY, Toribio HOFF MD Unavailable Unavailable SHELBY, Toribio HOFF MD Unavailable Unavailable SHELBY, Toribio HOFF MD Unavailable Unavailable SHELBY, Toribio HOFF MD Unavailable Unavailable SHELBY, Toribio HOFF MD Unavailable Unavailable SHELBY, Toribio HOFF MD Unavailable Unavailable SHELBY, Toribio HOFF MD Unavailable Unavailable SHELBY, Toribio HOFF MD Unavailable Unavailable SHELBY, Toribio HOFF MD Unavailable Unavailable SHELBY, Toribio HOFF MD Unavailable Unavailable SHELBY, Toribio HOFF MD Unavailable Unavailable SHELBY, Toribio HOFF MD Unavailable Unavailable SHELBY, Toribio HOFF MD Unavailable Unavailable SHELBY, Toribio HOFF MD Unavailable Unavailable SHELBY, Torbiio HOFF MD Unavailable Unavailable SHELBY, Toribio HOFF MD Unavailable Unavailable SHELBY, Toribio HOFF MD Unavailable Unavailable SHELBY, Toribio HOFF MD Unavailable Unavailable SHELBY, Toribio HOFF MD Unavailable Unavailable SHELBY, Toribio HOFF MD Unavailable Unavailable SHELBY, Toribio HOFF MD Unavailable Unavailable SHELBY, Toribio HOFF MD Unavailable Unavailable SHELBY, Toribio HOFF MD Unavailable Unavailable SHELBY, Toribio HOFF MD Unavailable Unavailable SHELBY, Toribio HOFF MD Unavailable Unavailable SHELBY, Toribio HOFF MD Unavailable Unavailable SHELBY, Toirbio HOFF MD Unavailable Unavailable SHELBY, Toribio HOFF MD Unavailable Unavailable SHELBY, Toribio HOFF MD Unavailable Unavailable SHELBY, Toribio HOFF MD Unavailable Unavailable SHELBY, Toribio HOFF MD Unavailable Unavailable SHELBY, Toribio HOFF MD Unavailable Unavailable SHELBY, Toribio HOFF MD Unavailable Unavailable SHELBY, Toribio HOFF MD Unavailable Unavailable SHELBY, Toribio HOFF MD Unavailable Unavailable SHELBY, Toribio HOFF MD Unavailable Unavailable SHELBY, Toribio HOFF MD Unavailable Unavailable SHELBY, Toribio HFOF MD Unavailable Unavailable SHELBY, oTribio HOFF MD Unavailable Unavailable SHELBY, Toribio HOFF MD Unavailable Unavailable SHELBY, Toribio HOFF MD Unavailable Unavailable SHELBY, Toribio HOFF MD Unavailable Unavailable SHELBY, Toribio HOFF MD Unavailable Unavailable SHELBY, Toribio HOFF MD Unavailable Unavailable SHELBY, Toribio HOFF MD Unavailable Unavailable SHELBY, Toribio HOFF MD Unavailable Unavailable SHELBY, Toribio HOFF MD Unavailable Unavailable SHELBY, Toribio HOFF MD Unavailable Unavailable SHELBY, Toribio HOFF MD Unavailable Unavailable SHELBY, Toribio HOFF MD Unavailable Unavailable SHELBY, Toribio HOFF MD Unavailable Unavailable SHELBY, Toribio HOFF MD Unavailable Unavailable SHELBY, Toribio HOFF MD Unavailable Unavailable SHELBY, Toribio HOFF MD Unavailable Unavailable SHELBY, Toribio HOFF MD Unavailable Unavailable SHELBY, Toribio HOFF MD Unavailable Unavailable SHELBY, Toribio HOFF MD Unavailable Unavailable SHELBY, Toribio HOFF MD Unavailable Unavailable SHELBY, Toribio HOFF MD Unavailable Unavailable SHELBY, Toribio HOFF MD Unavailable Unavailable SHELBY, Toribio HOFF MD Unavailable Unavailable SHELBY, Toribio HOFF MD Unavailable Unavailable SHELBY, Toribio HOFF MD Unavailable Unavailable SHELBY, Toribio HOFF MD Unavailable Unavailable SHEBLY, Toribio HOFF MD Unavailable Unavailable SHELBY, Toribio HOFF MD Unavailable Unavailable SHELBY, Toribio HOFF MD Unavailable Unavailable SHELBY, Toribio HOFF MD Unavailable Unavailable SHELBY, Toribio HOFF MD Unavailable Unavailable SHELBY, Toribio HOFF MD Unavailable Unavailable SHELBY, Toribio HOFF MD Unavailable Unavailable SHELBY, Toribio HOFF MD Unavailable Unavailable SHELBY, Toribio HOFF MD Unavailable Unavailable SHELBY, Toribio HOFF MD Unavailable Unavailable SHELBY, Toribio HOFF MD Unavailable Unavailable SHELBY, Toribio HOFF MD Unavailable Unavailable Gary Lorenzo MD Unavailable Unavailable Gary Lorenzo MD Unavailable Unavailable Gary Lorenzo MD Unavailable Unavailable Gary Lorenzo MD Unavailable Unavailable Gary Lorenzo MD Unavailable Unavailable Gary Lorenzo MD Unavailable Unavailable Gary Lorenzo MD Unavailable Unavailable Gary Lorenzo MD Unavailable Unavailable Gary Lorenzo MD Unavailable Unavailable Gary Lorenzo MD Unavailable Unavailable Gary Lorenzo MD Unavailable Unavailable Gary Lorenzo MD Unavailable Unavailable Gary Lorenzo MD Unavailable Unavailable Gary Lorenzo MD Unavailable Unavailable Gary Lorenzo MD Unavailable Unavailable Gary Lorenzo MD Unavailable Unavailable BolGary chu MD Unavailable Unavailable Bolla S Ángel CAMACHO Unavailable Unavailable BolGary chu MD Unavailable Unavailable BollaGary MD Unavailable Unavailable Bolvlad S Ángel CAMACHO Unavailable Unavailable Bolla S Ángel CAMACHO Unavailable Unavailable Bolla S Ángel CAMACHO Unavailable Unavailable Bolvlad S Ángel CAMACHO Unavailable Unavailable Bolvlad S Ángel CAMACHO Unavailable Unavailable Bolvlad S Ángel CAMACHO Unavailable Unavailable Bolla S Ángel CAMACHO Unavailable Unavailable Bolla S Ángel CAMACHO Unavailable Unavailable Bolla S Ángel MD Unavailable Unavailable Bolla S Ángel CAMACHO Unavailable Unavailable Bolla, S Ángel CAMACHO Unavailable Unavailable Bolla S Ángel CAMACHO Unavailable Unavailable Bolla S Ángel CAMACHO Unavailable Unavailable Bolla, S Ángel CAMACHO Unavailable Unavailable Bolla S Ángel CAMACHO Unavailable Unavailable Bolvlad S Ángel CAMACHO Unavailable Unavailable Bolvlad S Ángel CAMACHO Unavailable Unavailable BolGary chu MD Unavailable Unavailable Bolvlad S Ángel CAMACHO Unavailable Unavailable BolGary chu MD Unavailable Unavailable Bolla S Ángel CAMACHO Unavailable Unavailable BolGary chu MD Unavailable Unavailable Bolvlad S Ángel CAMACHO Unavailable Unavailable BolGary chu MD Unavailable Unavailable BolGary chu MD Unavailable Unavailable BolGary chu MD Unavailable Unavailable BolGary chu MD Unavailable Unavailable Gary Lorenzo MD Unavailable Unavailable MICHELLE MORRIS MD Unavailable Unavailable MICHELLE MORRIS MD Unavailable Unavailable MICHELLE MORRIS MD Unavailable Unavailable MICHELLE MORRIS MD Unavailable Unavailable MICHELLE MORRIS MD Unavailable Unavailable MICHELLE MORRIS MD Unavailable Unavailable MICHELLE MORRIS MD Unavailable Unavailable MICHELLE MORRIS MD Unavailable Unavailable MICHELLE MORRIS MD Unavailable Unavailable MICHELLE MORRIS MD Unavailable Unavailable MICHELLE MORRIS MD Unavailable Unavailable MICHELLE MORRIS MD Unavailable Unavailable MICHELLE MORRIS MD Unavailable Unavailable MICHELLE MORRIS MD Unavailable Unavailable MICHELLE MORRIS MD Unavailable Unavailable MICHELLE MORRIS MD Unavailable Unavailable MICHELLE MORRIS MD Unavailable Unavailable MICHELLE MORRIS MD Unavailable Unavailable MICHELLE MORRIS MD Unavailable Unavailable MICHELLE MORRIS MD Unavailable Unavailable MICHELLE MORRIS MD Unavailable Unavailable MICHELLE MORRIS MD Unavailable Unavailable MICHELLE MORRIS MD Unavailable Unavailable MICHELLE MORRIS MD Unavailable Unavailable MICHELLE MORRIS MD Unavailable Unavailable MICHELLE MORRIS MD Unavailable Unavailable MICHELLE MORRIS MD Unavailable Unavailable STILLMICHELLE CONRAD MD Unavailable Unavailable STILLMICHELLE CONRAD MD Unavailable Unavailable STILLMICHELLE CONRAD MD Unavailable Unavailable STILLMICHELLE CONRAD MD Unavailable Unavailable STILLMICHELLE CONRAD MD Unavailable Unavailable Wilmot, V SHER PA-C Unavailable Unavailable Wilmot, V SHER PA-C Unavailable Unavailable Lui, V SHER PA-C Unavailable Unavailable Lui, V SHER PA-C Unavailable Unavailable Lui, V SHER PA-C Unavailable Unavailable Lui, V SHER PA-C Unavailable Unavailable Lui, V SHER PA-C Unavailable Unavailable Re-disclosure Warning The records that you are about to access may contain information from federally-assisted alcohol or drug abuse programs. If such information is present, then the following federally mandated warning applies: This information has been disclosed to you from records protected by federal confidentiality rules (42 CFR part 2). The federal rules prohibit you from making any further disclosure of this information unless further disclosure is expressly permitted by the written consent of the person to whom it pertains or as otherwise permitted by 42 CFR part 2. A general authorization for the release of medical or other information is NOT sufficient for this purpose. The Federal rules restrict any use of the information to criminally investigate or prosecute any alcohol or drug abuse patient.The records that you are about to access may contain highly sensitive health information, the redisclosure of which is protected by Article 27-F of the [facility] Public Health law. If you continue you may have access to information: Regarding HIV / AIDS; Provided by facilities licensed or operated by the [facility] Office of Mental Health; or Provided by the [facility] Office for People With Developmental Disabilities. If such information is present, then the following [facility] mandated warning applies: This information has been disclosed to you from confidential records which are protected by state law. State law prohibits you from making any further disclosure of this information without the specific written consent of the person to whom it pertains, or as otherwise permitted by law. Any unauthorized further disclosure in violation of state law may result in a fine or prison sentence or both. A general authorization for the release of medical or other information is NOT sufficient authorization for further disc losure. Allergies and Adverse Reactions Type Description Substance Reaction Status Data Source(s ) Allergy to substance No Known Allergies No known allergies (situation ) VIJAY (Yoni Mota MD [facility]) Drug Class NO KNOWN ALLERGIES NO KNOWN ALLERGIES [facility] Family History Family Member Name Family Member Gender Family Member Status Date o f Status Description Data Source(s) Unknown Unknown Problem [facility] ([facility]) Unknown Male Problem [facility] ([facility] () Unknown Unknown Problem [facility] ([facility] Unknown Male Problem [facility] ([facility] ) Encounters Encounter Providers Location Date Indications Data Source(s ) Outpatient Attender: SHER [email or web address] 02/2021 12:00:00 AM EST - 08/19/2020 02:02:36 PM EST [facility] Outpatient Attender: Fabby Valadez PA-C Main Office 07/29/2020 01:15:00 PM EST [facility] ([facility] Outpatient<td ID="encounterTypeDescripti onID0">1 Year Follow-Up</td><td>Yoni José MD, FACS</td><td>Yoni José MD [facility]</td><td>05/11/2020</td><td>2:05PM</td><td>3:03PM</td><td><content ID="encounterDiagnosisID0-0">Cataract Senile Nuclear</content>, <content ID="encounterDiagnosisID0-1">Retinopathy Hypertensive Both Eyes</content>, <content ID="encounterDiagnosisID0-2">Dry Eye Syndrome Both Eyes</content></td> Attender: Yoni Mota MD, FACS Yoni José MD [facility] 05/11/2020 02:05:0 0 PM EDT - 05/11/2020 03:03:00 PM EDT Cataract Senile NuclearDry Eye Syndrome Both EyesRetinopathy Hypertensive Both Eyes VIJAY (Yoni Mota MD [facility]) 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 Outpatient Attender: Eve CAPUTO Main Office 02/05/2020 02:40:00 PM EDT MED[facility] ([facility] Outpatient Attender: Valerie Almodovar [facility] Main Office 01/26/2020 0 5:00:00 PM EDT MED[facility] ([facility] Outpatient Attender: Molly Castaneda MDReferrer: El [email or web address] 01/01/2020 08:22:20 AM EDT - 01/01/2020 09:19:41 AM EDT [facility] Outpatient Referrer: Molly [email or web address] 12/12 08:21:50 AM EDT - 01/01/2020 09:19:28 AM EDT [facility] Outpatient Attender: Molly [email or web address] 11/2019 12:00:00 AM EDT - 12/15/2019 01:39:57 PM EDT [facility] Ángel Lorenzo MD: [id number] [phone], Ph. Attender: Ángel Lorenzo MD [place] [facility] - Main Office 07/29/2019 12:00:00 AM EST JOSUE ([facility]) Outpatient Attender: Gerald Huntley MD Physical Therapy 09:45:00 AM EST MEDENT ([facility]) Outpatient Attender: KAVYA RYAN MD 07/25/2019 12:00:00 AM EST [facility] [address] [place] [phone] 07/21/2019 12:00:00 AM EST eCW1 ([facility]) [facility] [address] [place] [phone] 07/21/2019 12:00:00 AM EST eCW1 ([facility]) Outpatient Attender: KAVYA RYAN MDReferrer: MICHELLE Ma MD [id number] 07/17/2019 12:00:00 AM EST Unspecified open wound of unspecified fi nger without damage to nail, subsequent encounter [facility] Unspecified open wound of unspecified fi nger without damage to nail, subsequent encounter Immunizations Vaccine Date Status Description Data Source(s) INFLUENZA VACCINE QUADRIVALENT (65 YR UP)/MF59 C.1/PF 07/12/2020 12:00:00 AM EST completed [facility] Medications Medication Brand Name Start Date Product Form Dose Route Admi nistrative Instructions Pharmacy Instructions Status Indications Reaction Description Data Source(s) ezetimibe 10 MG Oral Tablet ezetimibe (ZETIA) 10 MG ta blet ezetimibe (ZETIA) 10 MG tablet 08/19/2020 12:00:00 AM EST 10 mg Oral active Take 1 tablet (10 mg total) by mouth daily [facility] Tamsulosin hydrochloride 0.4 MG Oral Capsule [Flomax] Flomax 07/29/2020 12:00:00 AM EST ORAL active [facility] ([facility] Tamsulosin hydrochloride 0.4 MG Oral Capsule tamsulosi n (FLOMAX) 0.4 MG CAPS tamsulosin (FLOMAX) 0.4 MG CAPS 07/29/2020 12:00:00 AM EST 0.4 mg O ral active Take 0.4 mg by mouth daily [facility] Magnesium Sulfate 0.0277 MEQ/ML / potass ium sulfate 0.0374 MEQ/ML / sodium sulfate 0.257 MEQ/ML Oral Solution SUPREP BOWEL PREP KIT 17.5-3.13-1.6 GM/177ML SOLN SUPREP BOWEL PREP KIT 17.5-3.13-1.6 GM/177ML SOLN 07/13 12:00:00 AM EST active take per doctor's bowel prep instructions. [facility] Magnesium Hydroxide 80 MG/ML Oral Suspension Milk Of Magnesi a 07/13/2020 12:00:00 AM EST ORAL active M EDENT ([facility] ) Suprep Bowel Prep Kit Suprep Bowel Prep Kit 07/13/2020 12:00:00 AM EST active [facility] ([facility]) FLUAD QUADRIVALENT 0.5 ML PRSY [id number] 07/12/2020 12:00:00 AM EST active INJECT 0.5ML INTRAMUSCULARLY [facility] Aspirin 81 MG Delayed Release Oral Table t Adult Aspirin Regimen 81 MG Oral Tablet Delayed Release Adult Aspirin Regimen 81 MG Oral Tablet Delayed Releas e 05/11/2020 12:00:00 AM EDT 1 active aspirin 81 MG Delayed Release Oral Tablet VIJAY (Yoni Mota MD [facility]) doxycycline hyclate 100 MG Oral Tablet Doxycycline Hyclate 0 12/17/2019 12:00:00 AM EDT ORAL completed [facility] ([facility] Ergocalciferol 33377 UNT Oral Capsule vi tamin D, Ergocalciferol, 1.25 MG (31261 UT) CAPS vitamin D, Ergocalciferol, 1.25 MG (41433 UT) CAPS 12:00:00 AM EDT active TAKE ONE CAPSULE BY MOUTH EVERY TWO WEEKS [facility] Ergocalciferol 81841 UNT Oral Capsule Vitamin D (Ergocalcife rol) 12/02/2019 12:00:00 AM EDT ORAL active M EDENT ([facility] Betamethasone 0.5 MG/ML / Clotrimazole 1 0 MG/ML Topical Cream clotrimazole- betamethasone (LOTRISONE) cream clotrimazole-betamethasone (LOTRISONE) cream 12/02/2019 12:00:00 AM EDT active APPLY TO THE AFFECTED AREA(S) ON GENITALS AND ANUS TWICE DAILY NEEDED [facility] gabapentin 300 MG Oral Capsule gabapentin (NEURONTIN) 300 MG capsule gabapentin (NEURONTIN) 300 MG capsule 11/06/2019 12:00:00 AM EDT 1 {capsule} Oral aborted Take 1 capsule by mouth 3 (three ) times a day [facility] Alprazolam 1 MG Oral Tablet ALPRAZolam (XANAX) 1 MG ta blet ALPRAZolam (XANAX) 1 MG tablet 10/31/2019 12:00:00 AM EDT active TAKE ONE TABLET BY MOUTH THREE TIMES DAILY NEEDED FOR ANXIETY / PANIC SYMPTOMS (- MAXIMUM DAILY DOSE THREE) [facility] 24 HR Bupropion Hydrochloride 300 MG Ext ended Release Oral Tablet buPROPion (WELLBUTRIN XL) 300 MG 24 hr tablet buPROPion (WELLBUTRIN XL) 300 MG 24 hr tablet 10/08/2019 12:00:00 AM EST 300 mg Oral active Take 300 mg by mouth daily [facility] Fenofibrate 134 MG Oral Capsule fenofibrate micronized (LOFIBRA) 134 MG capsule fenofibrate micronized (LOFIBRA) 134 MG capsule 09/30/2019 12:00:00 AM EST 134 mg Oral aborted Take 134 mg by mouth thuy ly [facility] Cephalexin 250 MG Oral Capsule [Keflex] Keflex 08/15/2019 12:00:00 AM EST active [facility] ([facility]) Cephalexin 250 MG Oral Capsule [Keflex] Keflex 07/28/2019 12:00:0 0 AM EST ORAL completed [facility] ([facility]) Acetaminophen 325 MG / Oxycodone Hydrochloride 5 MG Or al Tablet Oxycodone-Acetaminophen 07/28/2019 12:00:00 AM EST ORAL active [facility] ([facility]) Acetaminophen 325 MG / Oxycodone Hydrochloride 5 MG Or al Tablet Oxycodone-Acetaminophen 06/30/2019 12:00:00 AM EST ORAL completed [facility] ([facility]) Cephalexin 250 MG Oral Capsule [Keflex] Keflex 05/29/2019 12:00:00 AM EDT completed [facility] ([facility]) Vitamin E D-Alpha 400 UNT Oral Capsule vitamin E 400 U NIT capsule vitamin E 400 UNIT capsule 12/12/2016 12:00:00 AM EDT abort ed VITAMIN E 400 UNIT CAPS [facility] Aspirin 325 MG Oral Tablet Aspirin 325 MG OR TABS Aspirin 32 5 MG OR TABS 12/05/2012 12:00:00 AM EDT 1 aborted aspirin 325 MG Oral Tablet VIJAY (Ynoi Mota MD [facility]) Levothyroxine Sodium 0.075 MG Oral Table t levothyroxine 75 mcg tablet 1 tablet daily levothyroxine 75 mcg tablet 1 tablet daily completed Levothyroxine Sodium 0.075 MG Oral Tablet JOSUE ([facility]) atorvastatin 40 MG Oral Tablet atorvastatin 40 mg tabl et atorvastatin 40 mg tablet completed atorvastatin 40 MG Oral Tablet JOSUE ([facility]) zonisamide 25 MG Oral Capsule zonisamide 25 mg capsule zonis amide 25 mg capsule completed zonisamide 25 MG Oral Capsule JOSUE ([facility]) Insurance Providers Payer name Policy type / Coverage type Policy ID Covered constitution party ID Covered constitution party's relationship to urbano Policy [place] Plan Information [employer] FEDERAL EMPLOYEE PROGRAM [id number] SP [id number] EXCELLUS BCBS EXCELLUS BCBS [id number] Rachel [id number] BCBS [facility] [place] Other 0 Self 0 EXCELLUS C [id number] Self [id number] EXCELLUS C [id number] Self [id number] [employer]EE PROGRAM [id number] SP [id number] [facility] Health Maintenance Organization (HMO) [id number] Self [id number] [facility] Health Maintenance Organization (HMO) [id number] Self [id number] BS [facility] Health Maintenance Organization (HMO) [id number] S elf [id number] BS [facility] Health Maintenance Organization (HMO) [id number] S elf [id number] BS [employer] [id number] Self [id number] BC BS [place] FED[place] B [id number] S [id number] BS [facility] Health Maintenance Organization (HMO) [id number] S elf [id number] BS [facility] Health Maintenance Organization (HMO) [id number] S elf [id number] EXCELLUS BCBS FEDERAL [id number] SP [id number] EXCELLUS BCBS FEDERAL [id number] SP [id number] BS [facility] Health Maintenance Organization (HMO) [id number] S elf [id number] BS [facility] Health Maintenance Organization (HMO) [id number] S elf [id number] EXCELLUS BCBS FEDERAL [id number] SP [id number] BS [place] Medigap Part B Self Bshmo [id number] Health Maintenance Organization (HMO) Self BS [place] Medigap Part B Self BS Fed Plan Commercial Self BC BS [place] FEDERAL B [id number] S [id number] EXCELLUS BCBS FEDERAL [id number] SP [id number] BC BS [place] FEDERAL [id number] SP [id number] Problems, Conditions, and Diagnoses Code Display Name Description Problem Type Effective Dates Data Source(s) I38 Murmur, diastolic Murmur, diastolic [id number] 12/15/2019 12:00:00 AM EDT [facility] Z95.5 Presence of coronary angioplasty implant and graft Presence of coronary angioplasty implant Diagnosis 01/01/2020 08:21:50 AM EDT [facility] I38 Endocarditis, valve unspecified Endocarditis, valve un specified Diagnosis 12/15/2019 12:59:13 PM EDT [facility] E78.00 Pure hypercholesterolemia, unspecified P ure hypercholesterolemia, unspecified Diagnosis 12/15/2019 12:59:13 PM EDT [facility] S61.209D Unspecified open wound of un specified finger without damage to nail, subsequent encounter Unspecified open wound of unspecified fi nger without damage to nail, subsequent encounter Diagnosis 07/17/2019 11:24:16 AM EST [facility] Surgeries/Procedures Procedure Description Date Indications Data Source(s) Surgical / procedural history : Bypass S urgery 2009, CABG, Stent, Fasciectomy of Right Ring Finger 05/2019, 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) Results ID Date Data Source [id number] 09/09/2020 09:45:00 AM EST [facility] Name Value Range Interpretation Code Description Data Jesusita rce(s) Supporting Document(s) SARS coronavirus 2 RNA Not Detected [facility] [place] This lab was ordered by [facility] and reported by [facility]. ID Date Data Source [id number] 07/22/2020 02:29:00 PM EST [facility] ([facility] Name Value Range Interpretation Code Description Data Jesusita rce(s) Supporting Document(s) Thyrotropin [Units/volume] in Serum or Plasma 0.997 uIU/ML 0.358-3.74 0 [facility] ([facility] Thyroxine (T4) free [Mass/volume] in Serum or Plasma 0.85 ng/dL 0.76- 1.46 [facility] ([facility] Calcidiol [Mass/volume] in Serum or Plasma 44.1 ng/mL 30.0-100.0 [facility] ([facility] ID Date Data Source [id number] 07/22/2020 02:29:00 PM EST [facility] ([facility] Name Value Range Interpretation Code Description Data Jesusita rce(s) Supporting Document(s) Cholesterol Level 165 mg/dL [facility] ([facility] Triglycerides Level 91 mg/dL [facility] ([facility] Non-HDL-C 105 mg/dL [facility] ([facility] LDL Cholesterol 87 mg/dL [facility] ([facility] HDL Cholesterol 60 mg/dL [facility] ([facility] Cholesterol Risk Ratio 2.750 [facility] ([facility] ID Date Data Source [id number] 07/22/2020 02:29:00 PM EST [facility] ([facility] Name Value Range Interpretation Code Description Data Jesusita rce(s) Supporting Document(s) Blood Urea Nitrogen 16 mg/dL 7-18 [facility] ([facility] Glucose, Fasting 77 mg/dL 70-100 [facility] ([facility] Creatinine For GFR 1.15 mg/dL 0.70-1.30 [facility] ([facility] Glomerular Filtration Rate Laboratory test result [facility] ([facility] <content>Units are mL/min/1.73 m2</content>
<content></content>
<content>Chronic Kidney Disease Staging per NK[facility]:</content>
<content></content>
<content>Stage I & II GFR >=60 Normal to Mildly Decreased</content>
<content>Stage III GFR 30- 59 Moderately Decreased</content>
<content>Stage IV GFR 15-29 Severely Decreased</content>
<content>Stage V GFR <15 Very Little GFR Left</content>
<content>ESRD GFR <15 on MANAGER SERVICES</content>
<content></content> Sodium Level 141 meq/L 136-145 [facility] ([facility] Carbon Dioxide Level 30 meq/L 21-32 [facility] ([facility] Potassium Serum 4.2 meq/L 3.5-5.1 [facility] ([facility] Chloride Level 109 meq/L 98-107 [facility] ([facility] Anion Gap 2 meq/L 8-16 [facility] ([facility] Calcium Level 8.2 mg/dL 8.8-10.2 [facility] ([facility] Ast/Sgot 15 U/L 7-37 [facility] ([facility] Alt/SGPT 19 U/L 12-78 [facility] ([facility] Alkaline Phosphatase 43 U/L 45-117 [facility] ([facility] Bilirubin,Total 0.4 mg/dL 0.2-1.0 [facility] ([facility] Total Protein 6.0 GM/DL 6.4-8.2 [facility] ([facility] Albumin 3.5 GM/DL 3.2-5.2 [facility] ([facility] Albumin/Globulin Ratio 1.4 [facility] ([facility] ID Date Data Source [id number] 02/04/2020 10:50:00 AM EDT [facility] ([facility] Name Value Range Interpretation Code Description Data Jesusita rce(s) Supporting Document(s) Calcitriol [Mass/volume] in Serum or Plasma 60.6 pg/mL 19.9-79.3 [facility] ([facility] Performed at: [address] [id number] Winder: Tonya Alexis MD, Phone: [phone] Cobalamin (Vitamin B12) [Mass/volume] in Serum or Plasma 861 pg/mL 2 47-911 [facility] ([facility] VITAMIN B12 NORMAL RANGE NORMAL 247 - 911 PG/ML INDETERMINATE 211 - 246 PG/ML DEFICIENT LESS THAN 211 PG/ML ID Date Data Source [id number] 02/04/2020 10:50:00 AM EDT [facility] ([facility] Name Value Range Interpretation Code Description Data Jesusita rce(s) Supporting Document(s) White Blood Count 4.7 10 4.0-10.0 [facility] ([facility] Red Blood Count 4.06 10 4.30-6.10 [facility] ([facility] Hematocrit 39.7 % 42.0-52.0 [facility] ([facility] Mean Corpuscular Volume 97.8 fl 80.0-96.0 M EDENT ([facility] Hemoglobin 13.4 g/dL 13.5-17.5 [facility] ([facility] Mean Corpuscular HGB Conc 33.8 g/dL 32.0-36.5 [facility] ([facility] Mean Corpuscular Hemoglobin 33.0 pg 27.0-33.0 [facility] ([facility] Red Cell Distribution Width 12.8 % 11.5-14.5 [facility] ([facility] Platelet Count, Automated 236 10 150-450 [facility] ([facility] Neutrophils % 61.4 % 36.0-66.0 [facility] ([facility] Lymph % 25.7 % 24.0-44.0 [facility] ([facility] [place] % 8.1 % 0.0-5.0 [facility] ([facility] Eos % 3.6 % 0.0-3.0 [facility] ([facility] Baso % 0.6 % 0.0-1.0 [facility] ([facility] Nucleated Red Blood Cell % 0.0 % 0-0 MED ENT ([facility] Immature Granulocyte % 0.6 % 0-3.0 [facility] ([facility] Lymph # 1.2 10 1.5-5.0 [facility] ([facility] Neutrophils # 2.9 10 1.5-8.5 [facility] ([facility] [place] # 0.4 10 0.0-0.8 [facility] ([facility] Baso # 0.0 10 0.0-0.2 [facility] ([facility] Eos # 0.2 10 0.0-0.5 [facility] ([facility] ID Date Data Source [id number] 02/04/2020 10:50:00 AM EDT [facility] ([facility] Name Value Range Interpretation Code Description Data Jesusita rce(s) Supporting Document(s) Thyrotropin [Units/volume] in Serum or Plasma 1.100 uIU/ML 0.358-3.74 0 [facility] ([facility] Thyroxine (T4) [Mass/volume] in Serum or Plasma 6.6 ug/dL 4.5-12.0 [facility] ([facility] ID Date Data Source [id number] 02/04/2020 10:50:00 AM EDT [facility] ([facility] Name Value Range Interpretation Code Description Data Jesusita rce(s) Supporting Document(s) Cholesterol Level 152 mg/dL [facility] ([facility] Triglycerides Level 101 mg/dL [facility] ([facility] LDL Cholesterol 84 mg/dL [facility] ([facility] HDL Cholesterol 48 mg/dL [facility] ([facility] Non-HDL-C 104 mg/dL [facility] ([facility] Cholesterol Risk Ratio 3.166 [facility] ([facility] ID Date Data Source [id number] 02/04/2020 10:50:00 AM EDT [facility] ([facility] Name Value Range Interpretation Code Description Data Jesusita rce(s) Supporting Document(s) Glucose, Fasting 92 mg/dL 70-100 [facility] ([facility] Blood Urea Nitrogen 16 mg/dL 7-18 [facility] ([facility] Creatinine For GFR 1.16 mg/dL 0.70-1.30 [facility] ([facility] Potassium Serum 4.4 meq/L 3.5-5.1 [facility] ([facility] Sodium Level 142 meq/L 136-145 [facility] ([facility] Glomerular Filtration Rate Laboratory test result [facility] ([facility] <content>Units are mL/min/1.73 m2</content>
<content></content>
<content>Chronic Kidney Disease Staging per NKF:</content>
<content></content>
<content>Stage I & II GFR >=60 Normal to Mildly Decreased</content>
<content>Stage III GFR 30- 59 Moderately Decreased</content>
<content>Stage IV GFR 15-29 Severely Decreased</content>
<content>Stage V GFR <15 Very Little GFR Left</content>
<content>ESRD GFR <15 on MANAGER SERVICES</content>
<content></content> Carbon Dioxide Level 28 meq/L 21-32 [facility] ([facility] Chloride Level 110 meq/L 98-107 [facility] ([facility] Ast/Sgot 15 U/L 7-37 [facility] ([facility] Anion Gap 4 meq/L 8-16 [facility] ([facility] Calcium Level 8.4 mg/dL 8.8-10.2 [facility] ([facility] Alt/SGPT 20 U/L 12-78 [facility] Bilirubin,Total 0.6 mg/dL 0.2-1.0 [facility] ([facility] Alkaline Phosphatase 40 U/L 45-117 [facility] ([facility] Albumin 3.4 GM/DL 3.2-5.2 [facility] ([facility] Total Protein 6.0 GM/DL 6.4-8.2 [facility] ([facility] Albumin/Globulin Ratio 1.3 [facility] ([facility] ID Date Data Source [id number] 01/01/2020 10:22:08 AM EDT [facility] Name Value Range Interpretation Code Description Data Jesusita rce(s) Supporting Document(s) &PDF [facility] ZIYACr0lUpAQOtTg89/RYUebNJGex9LvNYoiWCh0ZNdnEMEiE2PdpWpqYZLKW5JTJNyFE8AQZLaqVODk yKE [file] GsfPWdnMbDhF5Zpyk1Dm3tLqn6e0LgjT3hW/LtmZPI1htINlNDpXsiX3teu/6isYC/J9IO3LfTNS3+OPEN CUT EXAMINER [file] AgICAgICAgICAgICAgICAgICAgICAgICAgICAgICAg ICAgICAgICAgICAgICAgICAgICAgICAgICAgICAgICAgICAgICAgICAgICAgICAgICAgICAgICAgICAg DQogICAgICAgICAgICAgICAgICAgICAgICAgICAgICAgICAgICAgICAgICAgICAgICAgICAgICAgICAg ICAgICAgICAgICAgICAgICAgICAgICAgICAgICAgIC AgICAgICAgICAgDQogICAgICAgICAgICAgICAgICAgICAgICAgICAgICAgICAgICAgICAgICAgICAgIC AgICAgICAgICAgICAgICAgICAgICAgICAgICAgICAgICAgICAgICAgICAgICAgICAgICAgDQogICAgIC AgICAgICAgICAgICAgICAgICAgICAgICAgICAgICAg ICAgICAgICAgICAgICAgICAgICAgICAgICAgICAgICAgICAgICAgICAgICAgICAgICAgICAgICAgICAg ICAgDQogICAgICAgICAgICAgICAgICAgICAgICAgICAgICAgICAgICAgICAgICAgICAgICAgICAgICAg ICAgICAgICAgICAgICAgICAgICAgICAgICAgICAgIC AgICAgICAgICAgICAgDQogICAgICAgICAgICAgICAgICAgICAgICAgICAgICAgICAgICAgICAgICAgIC AgICAgICAgICAgICAgICAgICAgICAgICAgICAgICAgICAgICAgICAgICAgICAgICAgICAgICAgDQogIC AgICAgICAgICAgICAgICAgICAgICAgICAgICAgICAg ICAgICAgICAgICAgICAgICAgICAgICAgICAgICAgICAgICAgICAgICAgICAgICAgICAgICAgICAgICAg ICAgICAgDQogICAgICAgICAgICAgICAgICAgICAgICAgICAgICAgICAgICAgICAgICAgICAgICAgICAg ICAgICAgICAgICAgICAgICAgICAgICAgICAgICAgIC AgICAgICAgICAgICAgICAgDQogICAgICAgICAgICAgICAgICAgICAgICAgICAgICAgICAgICAgICAgIC AgICAgICAgICAgICAgICAgICAgICAgICAgICAgICAgICAgICAgICAgICAgICAgICAgICAgICAgICAgDQ ogICAgICAgICAgICAgICAgICAgICAgICAgICAgICAg ICAgICAgICAgICAgICAgICAgICAgICAgICAgICAgICAgICAgICAgICAgICAgICAgICAgICAgICAgICAg JHWdMXIaVOAlJEx5I4ezZEWbMAMzAX5eUSc9Au5+NLqHLdMjQSL6ozVnxN7RQF6xk6WnBUuvYPApj4Zg XCu3XP5RNUJzUMyxZW5WVNehag1MJYBoBOTzuLPYe9 yhBbQrADY0FARtBirbOM1NLLVbA7ymqwFnCLTgEHOBMUopEDEVVN0GIhAeJ5VuqS55GRFGAz6+DQplbm HtEzeTWlCbMLIva3StGQe8WI3YGBXtXSnmYN7VMFIvvP1sGRcqVF0TUjThXVMbBWJBVxZuV56meSSzBB s8Q2KnHjDxCVKpQzcxKFTdBDtyRgVhLUJlFoNhKOhc ID4+ID4+CVjwRJ3JQXeineNpYIZcVm4EFUGfCFX9UOLdsBQnIePsHPOROLuhTS2SoKFjTKX1gE7yNIfl PGHnAJQaR9aSTiQksJdaQQ48qCvuenKxeHVpQBc+Vf8ELB4ac3DaZUl8koStVOviATRiLWvlPWLeTCNi LBRkARY2DLW2ZISVVgGdPHFgVBVuPGybZSWoIFGrbx 8ZOHZaTUDsVeG2JJLqCKTcZDSqXKoxQSDuGZZ3QHh9XVApHRPyFJ8GKgJkLWUeYZCfMJTzVLDeHRXenk 2HTJEdPOCiSlY9QZHbOVXnPOFuSStoINVeMLKmNiN1YBCcETIzRX3VTdZmYRSfYYQyHKNlDXSxKLMzym 5LOGJpMZOpRZS3GRXjFFEjELOjELvcBQDpLUN7MjR8 MUQmNJYpJN3IFsUvWQGvTXF4MSFvHGCwUBPlae8EYDJiCERbKKhzCJGcDHHyQITlDBeyOTYgCCY4Goy6 LNKkJFVxRZ2CVcErVXEzLUV7XLRbASRmHZHcca1YGEGhIMYmOzN2ZPUfTOKlUPZkKBjsIENkUYV5PGXm VALdXGYrIH2QNsNmSHWtEHywLnOjPXQgRTOfsj8DUV HnDWCyYAUiORVoIGIhEJHfVPojOZIhDCG1TAPbVJNdTUXePF6HMuNqYXJlTHksCbwrELSpOXMbge6BGS OdICJhJlV7RXWfBKZgZLLtEOxkSEAwARD2SGPmBQDbHDViIC9MGrZyHHxlGCBEPxi3HLjtZ1n4CUFaQw 0VH3Lla4QgJwYoFERGAJmdVW7cnrNfISInJg2RQ5tL GwtmS3HjUiNzBoayEvNmUIJ6WnE5DbGsLMYbEfy5GGRwEz9lVCA2M1MjDKWoLWR5ZPL3VwnwAor1STWz FiQlVMTxCjR0FtWzDS2RZj4ARdQ7VYD9yDTzAx6AXKmcUJHUQbKkWZ0MYSo= ID Date Data Source [id number] 09/23/2019 03:31:00 PM EST [facility] ([facility]) Name Value Range Interpretation Code Description Data Jesusita rce(s) Supporting Document(s) Laboratory test finding (navigational concept) <pending> MEDLISA ([facility] ) ID Date Data Source [id number] 07/28/2019 12:52:00 PM EST LEATHA ([facility] ) Name Value Range Interpretation Code Description Data Jesusita rce(s) Supporting Document(s) Surgical pathology study (SEE NOTE) MEDE NT ([facility] ) FINAL DIAGNOSIS Right ring finger, distal amputation: Skin with ulcer and soft tissue necrosis. No evidence of acute osteomyelitis. 07/31/2019742 CLINICAL DIAGNOSIS Right ring finger skin necrosis 07/29/2019630 GROSS DIAGNOSIS Received in formalin labeled "right ring finger" is a 5.7 x 2.0 x 1.4 cm. product of a distal ring finger amputation. There is a 2 x 0.8 cm. portion of exposed tendon that is discolored. There is an intact grossly unremarkable 1.5 x 1.0 cm. nail. [employer] sections of skin are submitted in (A1) and a portion of bone in (A2) following decalcification. -BP 07/29/2019630 Signed ARI LAMA MD 07/31/201943 ID Date Data Source [id number] 07/18/2019 07:19:06 AM EST [facility] Name Value Range Interpretation Code Description Data Jesusita rce(s) Supporting Document(s) Progress Note [facility] HNRXCf8aWcRMUiLd82/XZPvkZQSfb2KkJJyxCXo1AFhxIZFkW1HmIUG2sH9gWWM4QUzWPkFmIXuvOnU6 [facility] [file] NeTUvmSNMtBAltIsKqUHO2CCU+IR7tAOq+Qh3Ea1ZsgpI6hkMcFGgiXDN7Sg6LKGBJJ2JEYc== Procedure Social History Code Duration Value Status Description Data Source(s ) Alcohol intake 08/19/2020 12:00:00 AM EST Yes completed [facility] Cigarette pack-years 08/19/2020 12:00:00 AM EST UNK completed [facility] Cigarettes smoked current (pack per day) - Reported 08/19/19 12:00:00 AM EST UNK completed [facility] Smoking 08/19/2020 12:00:00 AM EST Former smoker completed Former smoker [facility] Smoking 07/29/2020 12:00:00 AM EST - 08/13/2009 12:00:00 AM EST Patient is a former smoker completed Patient is a former smoker [facility] ([facility] Smoking 05/11/2020 03:04:04 PM EDT Never smoked tobacco (findi ng) completed Never smoked tobacco (finding) VIJAY (Yoni Mota MD [facility]) Vital Signs ID Date Data Source UNK Name Value Range Interpretation Code Description Data Source(s) Oxygen saturation in Arterial blood by Pulse oximetry 94 % 94 % [facility] Body mass index (BMI) [Ratio] 25.74 kg/m2 25.74 kg/m2 [facility] Body weight 81.375 kg 81.375 kg [facility] Body height 177.8 cm 177.8 cm [facility] Heart rate 72 /min 72 /min [facility] Diastolic blood pressure 68 mm[Hg] 68 mm[Hg] [facility] Systolic blood pressure 134 mm[Hg] 134 mm[Hg] [facility] Body mass index (BMI) [Ratio] 26.7 kg/m2 26.7 k g/m2 [facility] ([facility] Heart rate 72 /min 72 /min [facility] ([facility] Diastolic blood pressure 47 mm[Hg] 47 mm[Hg] [facility] ([facility] Systolic blood pressure 116 mm[Hg] 116 mm[Hg] M [facility] ([facility] [place] body weight 160 [lb_av] 160 [lb_av] [facility] T ([facility] Oxygen saturation in Arterial blood by Pulse oximetry 99 % 99 % [facility] ([facility] Body weight 181.12 [lb_av] 181.12 [lb_av] [facility] T ([facility] Body height 69 [in_i] 69 [in_i] [facility] ([facility] 5'9" Respiratory rate 17 /min 17 /min [facility] ( [facility] Body temperature 96.4 [degF] 96.4 [degF] [facility] ([facility] Body surface area Derived from formula 1.98 m2 1.98 m2 [facility] ([facility], ) Body weight 80.287 kg 80.287 kg [facility] ([facility], ) [place] body weight 166 [lb_av] 166 [lb_av] [facility] T ([facility], ) Body mass index (BMI) [Ratio] 25.4 kg/m2 25.4 k g/m2 MEDENT ([facility], ) Body weight 177.00 [lb_av] 177.00 [lb_av] MEDEN T ([facility], ) Body height 70 [in_i] 70 [in_i] MEDENT ([facility], ) 5'10" Diastolic blood pressure 70 mm[Hg] 70 mm[Hg] [facility] ([facility]) Systolic blood pressure 132 mm[Hg] 132 mm[Hg] [facility] Body mass index (BMI) [Ratio] 25.9 kg/m2 25.9 k g/m2 MEDENT ([facility] [place] body weight 160 [lb_av] 160 [lb_av] MEDEN T ([facility] Oxygen saturation in Arterial blood by Pulse oximetry 99 % 99 % MEDENT ([facility] Body weight 175.38 [lb_av] 175.38 [lb_av] MEDEN T ([facility] Body height 69 [in_i] 69 [in_i] MEDENT ([facility] 5'9" Respiratory rate 16 /min 16 /min MEDENT ( [facility] Body temperature 97.8 [degF] 97.8 [degF] MEDENT ([facility] Heart rate 69 /min 69 /min MEDENT ([facility] Diastolic blood pressure 55 mm[Hg] 55 mm[Hg] MEDENT ([facility] Systolic blood pressure 126 mm[Hg] 126 mm[Hg] [facility] Body mass index (BMI) [Ratio] 25.5 kg/m2 25.5 k g/m2 MEDENT ([facility] [place] body weight 160 [lb_av] 160 [lb_av] MEDEN T ([facility] Body weight 173.00 [lb_av] 173.00 [lb_av] MEDEN T ([facility] Body height 69 [in_i] 69 [in_i] MEDENT ([facility] 5'9" Respiratory rate 16 /min 16 /min MEDENT ( [facility] Body temperature 97.9 [degF] 97.9 [degF] MEDENT ([facility] Heart rate 74 /min 74 /min MEDENT ([facility] Diastolic blood pressure 51 mm[Hg] 51 mm[Hg] MEDENT ([facility] Systolic blood pressure 119 mm[Hg] 119 mm[Hg] M EDENT ([facility] Body weight 178 [lb_av] 178 [lb_av] JOSUE ([facility]) Systolic blood pressure 138 mm[Hg] 138 mm[Hg] A THENA ([facility]) Body mass index (BMI) [Ratio] 25.5 kg/m2 25.5 k g/m2 JOSUE ([facility]) Body height 70 [in_i] 70 [in_i] JOSUE ([facility]) Diastolic blood pressure 66 mm[Hg] 66 mm[Hg] JOSUE ([facility]) Diastolic blood pressure 61 mm[Hg] 61 mm[Hg] eCW1 ([facility]) Systolic blood pressure 129 mm[Hg] 129 mm[Hg] e CW1 ([facility]) Body temperature 98.6 [degF] 98.6 [degF] eCW1 ( [facility]) Respiratory rate 16 /min 16 /min eCW1 ([facility]) Heart rate 76 /min 76 /min eCW1 ([facility]) Body mass index (BMI) [Ratio] 25.82 kg/m2 25.82 kg/m2 eCW1 ([facility]) Body height 70 [in_us] 70 [in_us] eCW1 ([facility]) Body weight Measured 180 [lb_av] 180 [lb_av] eC W1 ([facility]) ID Date Data Source [id number] 07/23/2019 02:08:23 PM [facility] Name Value Range Interpretation Code Description Data Source(s) WEIGHT RECORDED 183 lb 183 lb [facility] Body height Measured 70 in 70 in [facility] Patient Treatment Plan of Care Planned Activity Planned Date Details Description Data Source (s) ezetimibe 10 MG Oral Tablet 08/19/2020 12:00:00 AM [facility] Magnesium Sulfate 0.0277 MEQ/ML / potass ium sulfate 0.0374 MEQ/ML / sodium sulfate 0.257 MEQ/ML Oral Solution 07/29/2020 12:00:00 AM [facility] Tamsulosin hydrochloride 0.4 MG Oral Capsule 07/29/2020 12:00:00 AM [facility] FLUAD QUADRIVALENT 0.5 ML PRSY 07/12/2020 12:00:00 AM [facility] Betamethasone 0.5 MG/ML / Clotrimazole 10 MG/ML Topica l Cream 12/02/2019 12:00:00 AM EDT [facility] Ergocalciferol 19535 UNT Oral Capsule 12/02/2019 12:00:00 AM EDT [facility] gabapentin 300 MG Oral Capsule 11/06/2019 12:00:00 AM EDT [facility] Alprazolam 1 MG Oral Tablet 10/31/2019 12:00:00 AM EDT [facility] 24 HR Bupropion Hydrochloride 300 MG Extended Release Oral Tablet 10/08/2019 12:00:[address] [facility] Fenofibrate 134 MG Oral Capsule 09/30/2019 12:00:00 AM [facility] Vitamin E D-Alpha 400 UNT Oral Capsule 12/12/2016 12:00:00 AM EDT [facility] zonisamide 25 MG Oral Capsule JOSUE ([facility]) Levothyroxine Sodium 0.075 MG Oral Tablet JOSUE ([facility]) atorvastatin 40 MG Oral Tablet JOSUE ([facility])
--- OUTSIDE RECORDS SUMMARY | 2020-09-14 07:00 | CCD ---
Continuity of Care Document (CCD) Created on: 07/26/2020 Troy Prince External Reference #: [id number] : 1945 Sex: Male Author Author Troy PALACIOS PA-C Organization Unknown Address [address] [place] [address] Phone [phone] Care Team Providers Care Cardroom Supervisor Name Role Phone [facility] [place] [facility] AUTM Murray Salcido AUTM [phone] Emy Burdick AUTM [phone] [facility] AUTM Problems Active Problems [...] Use Denies Drug Use Smoking Status Reviewed: 01/26/20 Patient is a former smoker sm oked 2 packs per day Exercise Type/Frequency Exercises regularly Sun Exposure Use less than 15 SPF Seat Belt/Car Seat Always uses seat belt Smoke Alarms Yes Smoke Alarms Carbon Monoxide Detector: Yes Allergies, Adverse Reactions, Alerts Active Allergies Reaction Severity Comments Date NKDA 08/04/2011 seasonal 11/01/2017 Medications Active Medications SIG Qnty Indications Ordering Provide r Date Vitamin D (Ergocalciferol) 1.25mg (07900 Ut) Capsules take one capsule by mouth every two weeks 6caps [facility]ina Wade M.D. 12/02/2019 Bupropion Hydrochloride ER (XL) 300mg Tablets ER 24HR 1 by mouth every day 90tabs F32.9 Rosina Wade M.D. 06/24/2019 Gabapentin 300mg Capsules Take One Capsule Three Times Daily By Mouth For Nerve Pain 90caps M54.5 Willia Rosina mariee M.D. 05/23/2019 Clotrimazole/Betamethasone Dipropionate 1-0.05% Cream apply to affected [...] a day as needed for anxiety/panic symptoms [facility] ref#: [id number] 90tabs Rosina Wade M.D. 07/09/2012 Fenofibrate Micronized 134mg Capsu les take one capsule by mouth every day for high triglycerides 90caps E78.2 Rosina Wade M.D. 07/09/[address] Take One Capsule By Mouth Every Day For heartburn/acid reflux 90caps Mauro, Rosina A., M.D. Aspirin [address] 1 by mouth every day Unknown Atorvastatin Calcium 80mg Tablets take one tablet by mouth every evening Molly Castaneda M.D Fish Oil Double Strength 1200mg Ca psules 1 by mouth every day Unknown Immunizations CPT Code Status Date Vaccine Lot # [id number] Given 05/23/2019 Influenza Virus Vaccine, Quadrivalent,age 3 and up,multidose vial [id number] Given 06/13/2017 Influenza Virus Vaccine, Quadrivalent,age 3 and up,multidose vial [id number] Given 07/06/2016 Zostavax 99099 Given 06/13/2016 Influenza Vaccination [id number] 24401 Given 12/14/2015 Prevnar 13 [id number] 48956 Given 06/11/2015 Influenza Vaccination/preser vative free [id number] 47383 Given 06/19/2013 Pneumococcal Vaccine [id number] 54483 Given 06/19/2013 Influenza Vaccination/preser vative free [id number] 84503 Given 07/09/2012 Influenza Vaccination/preser vative free [id number] Vital Signs Date Vital Result Comment 02/05/2020 2:41pm BP Systolic 126 mmHg BP Diastolic 55 mmHg Heart Rate 69 /min Body Temperature 97.8 F Respiratory Rate 16 /min Height 69 inches 5'9" Weight 175.38 lb O2 % BldC Oximetry 99 % Peak Expiratory Flow Rate 477 Estimated Peak Flow Rate Leroy Body Weight 160 lb BMI (Body Mass Index) 25.9 kg/m2 01/26/2020 5:00pm BP Systolic 119 mmHg BP Diastolic 51 mmHg Heart Rate 74 /min Body Temperature 97.9 F Respiratory Rate 16 /min Height 69 inches 5'9" Weight 173.00 lb Peak Expiratory Flow Rate 477 Estimated Peak Flow Rate Leroy Body Weight 160 lb BMI (Body Mass Index) 25.5 kg/m2 Results Test Acquired Date Facility Test Result H/L Range Note Comprehensive Metabolic Profil 07/22/2020 [facility] [phone] Glucose, Fasting 77 mg/dL Normal 70-100 Blood [...] Albumin/Globulin Ratio 1.4 Normal Lipid Panel 07/22/2020 [facility] [phone] Triglycerides Level 91 mg/dL Normal <150 Cholesterol Level 165 mg/dL Normal <200 HDL Cholesterol 60 mg/dL Normal >40 LDL Cholesterol 87 mg/dL Normal <100 Non-HDL-C 105 mg/dL Normal Cholesterol Risk Ratio 2.750 Normal <5 Laboratory test finding 07/22/2020 [facility] [phone] Thyroid Stimulating Hormone 0.997 uIU/ML Normal 0. 358-3.740 Free T4 0.85 ng/dL Normal 0.76-1.46 Total 25(Oh) Vitamin D 44.1 NG/ML Normal 30.0-100.0 Comprehensive Metabolic Profil 02/04/2020 [facility] [phone] Glucose, Fasting 92 mg/dL Normal 70-100 Blood [...] Albumin/Globulin Ratio 1.3 Normal Lipid Panel 02/04/2020 [facility] [phone] Triglycerides Level 101 mg/dL Normal <150 Cholesterol Level 152 mg/dL Normal <200 HDL Cholesterol 48 mg/dL Normal >40 LDL Cholesterol 84 mg/dL Normal <100 Non-HDL-C 104 mg/dL Normal Cholesterol Risk Ratio 3.166 Normal <5 Laboratory test finding 02/04/2020 [facility] [phone] Thyroid Stimulating Hormone 1.100 uIU/ML Normal 0. 358-3.740 Thyroxine (T4) 6.6 g/dL Normal 4.5-12.0 CBC With Differential 02/04/2020 [facility] [phone] White Blood Count 4.7 10 Normal 4.0-10.0 [...] 36.0-66.0 Lymph % 25.7 % Normal 24.0-44.0 [place] % 8.1 % High 0.0-5.0 Eos % 3.6 % High 0.0-3.0 Baso % 0.6 % Normal 0.0-1.0 Immature Granulocyte % 0.6 % Normal 0-3.0 Nucleated Red Blood Cell % 0.0 % Normal 0-0 Neutrophils # 2.9 10 Normal 1.5-8.5 Lymph # 1.2 10 Low 1.5-5.0 [place] # 0.4 10 Normal 0.0-0.8 Eos # 0.2 10 Normal 0.0-0.5 Baso # 0.0 10 Normal 0.0-0.2 Laboratory test finding 02/04/2020 [facility] [phone] Vitamin B12 Level 861 pg/mL Normal 247-911 3 Vitamin D 1,25 Dihydroxy 60.6 pg/mL Normal 19.9-79.3 4 1 Units are mL/min/1.73 m2 Chronic Kidney Disease Staging per NKF: Stage I & II GFR >=60 Normal to Mildly Decreased Stage III GFR 30-59 Moderately Decreased Stage IV GFR 15-29 Severely Decreased Stage V GFR <15 Very Little GFR Left ESRD GFR <15 on [place] 2 Units are mL/min/1.73 m2 Chronic Kidney Disease Staging per NKF: Stage I & II GFR >=60 Normal to Mildly Decreased Stage III GFR 30-59 Moderately Decreased Stage IV GFR 15-29 Severely Decreased Stage V GFR <15 Very Little GFR Left ESRD GFR <15 on [place] 3 VITAMIN B12 NORMAL RANGE NORMAL 247 - 911 PG/ML INDETERMINATE 211 - 246 PG/ML DEFICIENT LESS THAN 211 PG/ML 4 Performed at: [facility] [address] [id number] Director [employer]: Tonya Alexis MD, Phone: [phone] Procedures Date Code Description Status 07/29/2015 [id number] Colonoscopy Completed Medical Devices Description No Information Available Encounters Type Date Location Provider Dx Diagnosis Office Visit 02/05/2020 2:40p Main Office Eve Palacios PA-C Z00.0 0 Encntr for general adult medical exam w/o abnormal findings F43.23 Adjustment disorder with mix ed anxiety and depressed mood K21.9 Gastro-esophageal reflux dis ease without esophagitis E78.2 Mixed hyperlipidemia E03.9 Hypothyroidism, unspecified D51.9 Vitamin B12 deficiency anemi a, unspecified E55.9 Vitamin D deficiency, unspec ified R07.9 Chest pain, unspecified Office Visit 01/26/2020 5:00p Main Office Valerie Almodovar FNP S30.8 60A Insect bite (nonvenomous) of lower back and pelvis, init Assessments Date Code Description Provider 02/05/2020 Z00.00 Encounter for general adult medi onel examination without abno Eve Palacios PA-C 02/05/2020 F43.23 Adjustment disorder with mixed a nxiety and depressed mood Eve Palacios PA-C 02/05/2020 K21.9 Gastro-esophageal reflux disease without esophagitis Eve Palacios PA-C 02/05/2020 E78.2 Mixed hyperlipidemia ManiJimena CRISTI roth 02/05/2020 E03.9 Hypothyroidism, unspecified Rameshor Eve ambriz PA-C 02/05/2020 D51.9 Vitamin B12 deficiency anemia, u nspecified Eve Palacios PA-C 02/05/2020 E55.9 Vitamin D deficiency, unspecifie d Eve Palacios PA-C 02/05/2020 R07.9 Chest pain, unspecified Eve Palacios PA-C 01/26/2020 S30.860A Insect bite (nonveno mous) of lower back and pelvis, initial encounter Valerie Almodovar FNP Plan of Treatment Future Appointment(s):* 07/29/2020 2:15 pm - Fabby Valadez PA at Main Office 02/05/2020 - Eve Palacios PA-C* Z00.00 Encounter for general adult medical examination without abno* Comments:* Health maintenance updated. Colonoscopy referral initiated. PHQ 9: 9, somewhat difficult. No memory concerns. * F43.23 Adjustment disorder with mixed anxiety and depressed mood* Comments:* controlled * K21.9 Gastro-esophageal reflux disease without esophagitis* Comments:* controlled * E78.2 Mixed hyperlipidemia * E03.9 Hypothyroidism, unspecified* Comments:* controlled * D51.9 Vitamin B12 deficiency anemia, unspecified* Comments:* stable * E55.9 Vitamin D deficiency, unspecified * R07.9 Chest pain, unspecified* Comments:* willl get repeat CT Functional Status Functional Condition Comment Date Status Independent with all ADL's Activ e Glasses Active Independent with all IADL's Acti ve Complete lower and upper and lower dentures Active Mental Status Mental Condition Comment Date Status None Active Referrals Refer to Reason for Referral Status Appt Date [facility] pt is due for 5 year screening colonoscopy [address] [place] [address] [phone]
[2020-09-14] MEDS ORDERED: LIDOCAINE 2% 100MG/5ML SDV (FOR ANES.) As Ordered ONE (07:10)
[2020-09-14] MEDS ORDERED: propofoL 200 MG/20 ML VIAL As Ordered ONE (07:10)
--- NOTE | 2020-09-14 07:55 | ROOR ---
Patient Name: Troy Prince Procedure Date: 09/14/2020 7:32 AM Date of : 1945 Age: 75 Room: [facility] Gender: Male Note Status: Finalized Procedure: Colonoscopy Indications: High risk colon cancer surveillance: Personal history of colonic polyps, Last colonoscopy: July 2015 Providers: Yoni WEBB MD Referring MD: Rosina Wade MD Requesting Provider: Medicines: Monitored Anesthesia Care Complications: No immediate complications. Procedure: Pre-Anesthesia Assessment: - The heart rate, respiratory rate, oxygen saturations, blood pressure, adequacy of pulmonary ventilation, and response to care were monitored throughout the procedure. The Colonoscope was introduced through the anus and advanced to the cecum, identified by appendiceal orifice and ileocecal valve. The colonoscopy was performed without difficulty. The patient tolerated the procedure well. The quality of the bowel preparation was good. Findings: The perianal and digital rectal examinations were normal. Two sessile polyps were found in the ascending colon. The polyps were diminutive in size. These polyps were removed with a cold snare. Resection and retrieval were complete. The exam was otherwise without abnormality on direct and retroflexion views. Impression: - Two diminutive polyps in the ascending colon, removed with a cold snare. Resected and retrieved. - The examination was otherwise normal on direct and retroflexion views. Recommendation: - Repeat colonoscopy in 5 years for surveillance. Procedure Code(s): --- Professional --- 33565, Colonoscopy, flexible; with removal of tumor(s), polyp(s), or other lesion(s) by snare technique Diagnosis Code(s): --- Professional --- Z86.010, Personal history of colonic polyps K63.5, Polyp of colon CPT copyright 2019 [employer] [employer]. All rights reserved. The codes documented in this report are preliminary and upon resident care coordinator review may be revised to meet current compliance requirements. Yoni Webb MD Yoni WEBB MD 09/14/2020 7:55:09 AM Electronically signed by Yoni WEBB MD Number of Addenda: 0 Note Initiated On: 09/14/2020 7:32 AM Estimated Blood Loss: Estimated blood loss: none.
[2020-09-14 08:39] VITALS: BP 105/52
== END 2020-09-14 08:35 | disposition home or self-care (01) ==
LOC: M OPP 06:54
PROVIDERS: ATTEND Internal Medicine Gastroenterology
DX: Z12.11 Encounter for screening for malignant neoplasm of colon (principal); Z86.010 Personal history of colon polyps; D12.2 Benign neoplasm of ascending colon; I25.10 Atherosclerotic heart disease of native coronary artery without angina pectoris; I25.2 Old myocardial infarction; I10 Essential (primary) hypertension; E78.5 Hyperlipidemia, unspecified; E03.9 Hypothyroidism, unspecified; R12 Heartburn; M19.90 Unspecified osteoarthritis, unspecified site; F41.9 Anxiety disorder, unspecified; F32.9 Major depressive disorder, single episode, unspecified; G43.909 Migraine, unspecified, not intractable, without status migrainosus; M54.2 Cervicalgia; I73.00 Raynaud's syndrome without gangrene; Z87.891 Personal history of nicotine dependence; Z95.5 Presence of coronary angioplasty implant and graft; Z91.09 Other allergy status, other than to drugs and biological substances; Z79.899 Other long term (current) drug therapy; Z80.8 Family history of malignant neoplasm of other organs or systems

== ENCOUNTER → 2021-09-20 | Outpatient (CLI) | payer BC ==
[~2021-09-20] MED LIST changes: -NS 1,000 ML IV ONE
[2021-09-20 11:36] LABS: ALBUMIN 3.4 GM/DL (3.2-5.2); ALT/SGPT 21 U/L (12-78); BILIRUBIN,TOTAL 0.4 MG/DL (0.2-1.0); BLOOD UREA NITROGEN 16 MG/DL (7-18); CALCIUM LEVEL 8.9 MG/DL (8.8-10.2); CARBON DIOXIDE LEVEL 29 MEQ/L (21-32); CHLORIDE LEVEL 109 MEQ/L (98-107); CHOLESTEROL LEVEL 126 MG/DL (<200); CREATININE FOR GFR 1.05 MG/DL (0.70-1.30); GLOMERULAR FILTRATION RATE > 60.0 (>42); GLUCOSE, FASTING 96 MG/DL (70-100); HDL CHOLESTEROL 60 MG/DL (>40); LDL CHOLESTEROL 53 MG/DL (<100); NON-HDL-C 66 MG/DL; POTASSIUM SERUM 4.5 MEQ/L (3.5-5.1); SODIUM LEVEL 144 MEQ/L (136-145); THYROID STIMULATING HORMONE 0.957 uIU/ML (0.358-3.740); TOTAL PROTEIN 6.2 GM/DL (6.4-8.2); TRIGLYCERIDES LEVEL 64 MG/DL (<150)
[2021-09-20 11:39] LABS: TOTAL 25(OH) VITAMIN D 54.6 NG/ML (30.0-100.0)
== END ==
LOC: M LAB 10:20
PROVIDERS: ATTEND Nurse Practitioner Family
DX: E03.9 Hypothyroidism, unspecified (principal)

== ENCOUNTER → 2022-02-10 | Outpatient (CLI) | payer BC ==
[~2022-02-10] MED LIST changes: -FENO134C PO; +FENO134C16 PO
[2022-02-10 15:14] LABS: FREE T4 0.87 NG/DL (0.76-1.46); THYROID STIMULATING HORMONE 0.804 uIU/ML (0.358-3.740)
== END ==
LOC: M LAB 13:35
PROVIDERS: ATTEND Nurse Practitioner Family
DX: E03.9 Hypothyroidism, unspecified (principal)

== ENCOUNTER → 2022-03-28 | Outpatient (CLI) | payer BC ==
[2022-03-28 12:44] LABS: FREE T4 0.82 NG/DL (0.76-1.46); THYROID STIMULATING HORMONE 0.982 uIU/ML (0.358-3.740)
== END ==
LOC: M LAB 10:25
PROVIDERS: ATTEND Nurse Practitioner Family
DX: E03.9 Hypothyroidism, unspecified (principal)

== ENCOUNTER → 2022-04-03 | Outpatient (CLI) | payer BC | LOC: M CARPUL 14:02 | PROVIDERS: ATTEND Nurse Practitioner Family | DX: R06.00 Dyspnea, unspecified (principal) ==

== ENCOUNTER → 2022-09-01 | Outpatient (CLI) | payer MEDICARE, BC ==
[~2022-09-01] MED LIST changes: -FENO134C16 PO; +FENO134C20 PO
[2022-09-01 14:40] LABS: PLATELET COUNT, AUTOMATED 259 10^3/uL (150-450)
[2022-09-01 14:54] LABS: INR 0.91; PROTHROMBIN TIME 12.5 SECONDS (12.5-14.5)
[2022-09-01 14:55] LABS: PARTIAL THROMBOPLASTIN TIME 26.9 SECONDS (24.8-34.2)
== END ==
LOC: M LAB 13:48
PROVIDERS: ATTEND Physician Assistant Surgical
DX: M47.896 Other spondylosis, lumbar region (principal)

== ENCOUNTER → 2022-09-01 | Outpatient (CLI) | payer MEDICARE, BC ==
[2022-09-01 15:05] LABS: ALBUMIN 3.4 G/DL (3.2-5.2); ALKALINE PHOSPHATASE 60 U/L (46-116); ALT/SGPT 17 U/L (7.0-40); AST/SGOT 20 U/L (<34); BILIRUBIN,TOTAL 0.6 MG/DL (0.3-1.2); BLOOD UREA NITROGEN 14 MG/DL (9-23); CALCIUM LEVEL 8.8 MG/DL (8.3-10.6); CARBON DIOXIDE LEVEL 28 MMOL/L (20-31); CHLORIDE LEVEL 106 MMOL/L (98-107); CREATININE FOR GFR 1.06 MG/DL (0.70-1.30); GLOMERULAR FILTRATION RATE > 60.0 (>42); GLUCOSE, FASTING 95 MG/DL (74-106); POTASSIUM SERUM 4.4 MMOL/L (3.5-5.1); SODIUM LEVEL 140 MMOL/L (136-145); TOTAL PROTEIN 6.1 G/DL (5.7-8.2)
[2022-09-01 15:06] LABS: THYROID STIMULATING HORMONE 1.217 uIU/ML (0.55-4.78)
== END ==
LOC: M LAB 13:44
PROVIDERS: ATTEND Nurse Practitioner Family
DX: E03.9 Hypothyroidism, unspecified (principal)

== ENCOUNTER → 2023-03-12 | Outpatient (CLI) | payer BC, MEDICARE ==
[2023-03-12 11:25] LABS: BASO % 0.5 % (0.0-1.0); EOS # 0.2 10^3/uL (0.0-0.5); EOS % 2.6 % (0.0-3.0); HEMATOCRIT 39.6 % (42.0-52.0); HEMOGLOBIN 13.6 g/dl (13.5-17.5); LYMPH # 1.3 10^3/uL (1.5-5.0); LYMPH % 20.3 % (24.0-44.0); MEAN CORPUSCULAR HEMOGLOBIN 34.1 pg (27.0-33.0); MEAN CORPUSCULAR HGB CONC 34.3 g/dl (32.0-36.5); MEAN CORPUSCULAR VOLUME 99.2 fl (80.0-96.0); MONO # 0.4 10^3/uL (0.0-0.8); MONO % 6.6 % (2.0-8.0); NEUTROPHILS # 4.6 10^3/uL (1.5-8.5); NEUTROPHILS % 69.2 % (36.0-66.0); PLATELET COUNT, AUTOMATED 248 10^3/uL (150-450); RED BLOOD COUNT 3.99 10^6/uL (4.30-6.10); WHITE BLOOD COUNT 6.6 10^3/uL (4.0-10.0)
[2023-03-12 11:45] LABS: HEMOGLOBIN A1c 5.4 % (4.0-6.0)
[2023-03-12 12:05] LABS: ALBUMIN 3.6 G/DL (3.2-5.2); ALKALINE PHOSPHATASE 55 U/L (46-116); ALT/SGPT 24 U/L (7.0-40); AST/SGOT 22 U/L (<34); BILIRUBIN,TOTAL 0.6 MG/DL (0.3-1.2); BLOOD UREA NITROGEN 13 MG/DL (9-23); CALCIUM LEVEL 8.6 MG/DL (8.3-10.6); CARBON DIOXIDE LEVEL 28 MMOL/L (20-31); CHLORIDE LEVEL 108 MMOL/L (98-107); CHOLESTEROL LEVEL 128 MG/DL (<200); CHOLESTEROL RISK RATIO 2.42 (<5); CREATININE FOR GFR 1.06 MG/DL (0.70-1.30); GLOMERULAR FILTRATION RATE > 60.0 (>42); GLUCOSE, FASTING 93 MG/DL (74-106); HDL CHOLESTEROL 52.7 MG/DL (>40); IRON (FE) 89 UG/DL (65-175); LDL CHOLESTEROL 57.7 MG/DL (<100); NON-HDL-C 75.3 MG/DL; PERCENT SATURATION 34.2 % (19.7-50.0); POTASSIUM SERUM 4.2 MMOL/L (3.5-5.1); SODIUM LEVEL 144 MMOL/L (136-145); TOTAL IRON BINDING CAPACITY 260 UG/DL (250-425); TOTAL PROTEIN 6.1 G/DL (5.7-8.2); TRIGLYCERIDES LEVEL 88 MG/DL (<150)
[2023-03-12 12:07] LABS: FERRITIN 176.8 NG/ML (10.5-307.3); THYROID STIMULATING HORMONE 2.762 uIU/ML (0.55-4.78)
[2023-03-12 12:08] LABS: FREE T4 0.99 NG/DL (0.89-1.76)
== END ==
LOC: M LAB 10:29
PROVIDERS: ATTEND Registered Nurse
DX: Z00.00 Encounter for general adult medical examination without abnormal findings (principal); E03.9 Hypothyroidism, unspecified; E78.2 Mixed hyperlipidemia

== ENCOUNTER → 2023-11-07 | Outpatient (CLI) | payer BC ==
[2023-11-07 11:42] LABS: BASO % 0.8 % (0.0-1.0); EOS # 0.2 10^3/uL (0.0-0.5); EOS % 3.1 % (0.0-3.0); HEMATOCRIT 38.9 % (42.0-52.0); HEMOGLOBIN 13.2 g/dl (13.5-17.5); LYMPH # 1.4 10^3/uL (1.5-5.0); LYMPH % 26.9 % (24.0-44.0); MEAN CORPUSCULAR HEMOGLOBIN 33.9 pg (27.0-33.0); MEAN CORPUSCULAR HGB CONC 33.9 g/dl (32.0-36.5); MONO # 0.5 10^3/uL (0.0-0.8); NEUTROPHILS % 59.4 % (36.0-66.0); PLATELET COUNT, AUTOMATED 251 10^3/uL (150-450); RED BLOOD COUNT 3.89 10^6/uL (4.30-6.10); WHITE BLOOD COUNT 5.1 10^3/uL (4.0-10.0)
[2023-11-07 12:07] LABS: FREE T4 1.18 NG/DL (0.89-1.76); THYROID STIMULATING HORMONE 1.632 uIU/ML (0.55-4.78)
[2023-11-07 12:16] LABS: ALBUMIN 3.6 G/DL (3.2-5.2); ALKALINE PHOSPHATASE 55 U/L (46-116); ALT/SGPT 22 U/L (7.0-40); AST/SGOT 16 U/L (<34); BILIRUBIN,TOTAL 0.7 MG/DL (0.3-1.2); BLOOD UREA NITROGEN 12 MG/DL (9-23); CALCIUM LEVEL 8.9 MG/DL (8.3-10.6); CARBON DIOXIDE LEVEL 29 MMOL/L (20-31); CHLORIDE LEVEL 108 MMOL/L (98-107); GLOMERULAR FILTRATION RATE > 60.0 (>42); GLUCOSE, FASTING 97 MG/DL (74-106); POTASSIUM SERUM 4.6 MMOL/L (3.5-5.1); SODIUM LEVEL 143 MMOL/L (136-145); TOTAL PROTEIN 6.1 G/DL (5.7-8.2)
[2023-11-08 23:07] LABS: PSA TOTAL 3.3 ng/mL (0.0-4.0)
== END ==
LOC: M LAB 10:52
PROVIDERS: ATTEND Registered Nurse
DX: N40.0 Benign prostatic hyperplasia without lower urinary tract symptoms (principal)

== ENCOUNTER → 2024-05-29 | Outpatient (CLI) | payer BC ==
[~2024-05-29] MED LIST changes: +BUPR-597 PO; -BUPR300T92 PO; +GABA-1172 PO; -GABA-282 PO
[2024-05-29 13:47] LABS: BASO % 0.6 % (0.0-1.0); EOS # 0.2 10^3/uL (0.0-0.5); HEMATOCRIT 37.1 % (42.0-52.0); HEMOGLOBIN 12.5 g/dl (13.5-17.5); LYMPH # 1.5 10^3/uL (1.5-5.0); LYMPH % 22.1 % (24.0-44.0); MEAN CORPUSCULAR HEMOGLOBIN 34.5 pg (27.0-33.0); MEAN CORPUSCULAR HGB CONC 33.7 g/dl (32.0-36.5); MEAN CORPUSCULAR VOLUME 102.5 fl (80.0-96.0); MONO # 0.5 10^3/uL (0.0-0.8); MONO % 7.6 % (2.0-8.0); NEUTROPHILS # 4.6 10^3/uL (1.5-8.5); NEUTROPHILS % 65.7 % (36.0-66.0); PLATELET COUNT, AUTOMATED 322 10^3/uL (150-450); RED BLOOD COUNT 3.62 10^6/uL (4.30-6.10)
[2024-05-29 14:39] LABS: FERRITIN 222.1 NG/ML (10.5-307.3); FOLATE 10.4 NG/ML (>5.4); FREE T4 1.17 NG/DL (0.89-1.76); TOTAL 25(OH) VITAMIN D 39.4 NG/ML (20.0-100.0); VITAMIN B12 LEVEL 820 PG/ML (211-911)
[2024-05-29 14:42] LABS: IRON (FE) 98 UG/DL (65-175)
[2024-05-29 14:43] LABS: PERCENT SATURATION 37.3 % (19.7-50.0); TOTAL IRON BINDING CAPACITY 263 UG/DL (250-425)
[2024-05-29 14:47] LABS: ALBUMIN 3.4 G/DL (3.2-5.2); ALKALINE PHOSPHATASE 59 U/L (46-116); ALT/SGPT 17 U/L (7.0-40); AST/SGOT 13 U/L (<34); BILIRUBIN,TOTAL 0.5 MG/DL (0.3-1.2); BLOOD UREA NITROGEN 16 MG/DL (9-23); CALCIUM LEVEL 8.9 MG/DL (8.3-10.6); CARBON DIOXIDE LEVEL 27 MMOL/L (20-31); CHLORIDE LEVEL 110 MMOL/L (98-107); CHOLESTEROL LEVEL 133 MG/DL (<200); CHOLESTEROL RISK RATIO 2.64 (<5); CREATININE FOR GFR 1.09 MG/DL (0.70-1.30); GLOMERULAR FILTRATION RATE > 60.0 (>42); GLUCOSE, FASTING 90 MG/DL (74-106); HDL CHOLESTEROL 50.3 MG/DL (>40); LDL CHOLESTEROL 62.1 MG/DL (<100); NON-HDL-C 82.7 MG/DL; POTASSIUM SERUM 4.4 MMOL/L (3.5-5.1); SODIUM LEVEL 141 MMOL/L (136-145); TOTAL PROTEIN 6.1 G/DL (5.7-8.2); TRIGLYCERIDES LEVEL 103 MG/DL (<150)
[2024-05-29 14:50] LABS: THYROID STIMULATING HORMONE 2.165 uIU/ML (0.55-4.78)
== END ==
LOC: M PLALAB 11:29
PROVIDERS: ATTEND Registered Nurse
DX: R42 Dizziness and giddiness (principal); E78.2 Mixed hyperlipidemia; E03.9 Hypothyroidism, unspecified

== ENCOUNTER → 2024-12-15 | Outpatient (CLI) | payer BC ==
[~2024-12-15] MED LIST changes: -BUPR-597 PO; +BUPR-766 PO
== END ==
LOC: M LAB 11:47
PROVIDERS: ATTEND Physician Assistant
DX: R97.20 Elevated prostate specific antigen [PSA] (principal)

== ENCOUNTER → 2024-12-15 | Outpatient (CLI) | payer BC ==
[2024-12-15 12:38] LABS: BASO % 0.8 % (0.0-1.0); EOS # 0.2 10^3/uL (0.0-0.5); EOS % 3.8 % (0.0-3.0); HEMOGLOBIN 12.5 g/dl (13.5-17.5); LYMPH # 1.2 10^3/uL (1.5-5.0); LYMPH % 25.5 % (24.0-44.0); MEAN CORPUSCULAR HEMOGLOBIN 33.8 pg (27.0-33.0); MEAN CORPUSCULAR HGB CONC 32.9 g/dl (32.0-36.5); MEAN CORPUSCULAR VOLUME 102.7 fl (80.0-96.0); MONO # 0.4 10^3/uL (0.0-0.8); MONO % 7.4 % (2.0-8.0); NEUTROPHILS # 2.9 10^3/uL (1.5-8.5); NEUTROPHILS % 61.9 % (36.0-66.0); PLATELET COUNT, AUTOMATED 241 10^3/uL (150-450); WHITE BLOOD COUNT 4.7 10^3/uL (4.0-10.0)
[2024-12-15 12:55] LABS: ALBUMIN 3.4 G/DL (3.2-5.2); BILIRUBIN,TOTAL 0.6 MG/DL (0.3-1.2); CALCIUM LEVEL 8.6 MG/DL (8.3-10.6); CHOLESTEROL RISK RATIO 2.41 (<5); CREATININE FOR GFR 1.14 MG/DL (0.70-1.30); GLOMERULAR FILTRATION RATE 65.8 (>42); HDL CHOLESTEROL 54.7 MG/DL (>40); LDL CHOLESTEROL 59.5 MG/DL (<100); NON-HDL-C 77.3 MG/DL; POTASSIUM SERUM 4.1 MMOL/L (3.5-5.1); THYROID STIMULATING HORMONE 1.361 uIU/ML (0.55-4.78); TOTAL PROTEIN 6.1 G/DL (5.7-8.2)
[2024-12-15 12:56] LABS: FREE T4 1.16 NG/DL (0.89-1.76)
== END ==
LOC: M LAB 11:49
PROVIDERS: ATTEND Registered Nurse
DX: E03.9 Hypothyroidism, unspecified (principal); E78.2 Mixed hyperlipidemia